=== PATIENT | male | born 1960 | race Caucasian/White ===

== ENCOUNTER 2021-02-17 07:36 | Outpatient (CLI) | payer OTHER, SELFPAY ==
--- NOTE | 2021-02-17 07:42 | USCV_ITS ---
Mateusz Erasmo Age: 60 Gender: M : 1960 Exam Date: 02/17/2021 07:55 Ordering Phys: Katie Antunze ACID CUTTER Technologist: Yasmin Awan [place] [facility] [place] [facility] [place]ication: LUE PAIN, WEAKNESS, AND NUMBNESS PROCEDURES: Venous duplex imaging was performed in only the left upper extremity. The following venous structures were evaluated: internal jugular vein, subclavian vein, axillary vein, and brachial veins. In addition, the basilic vein, cephalic vein, radial vein, and ulnar vein. Serial compression, augmentation maneuvers, and spectral Doppler flow evaluation were performed. FINDINGS: The veins of the left upper extremity are readily compressible with normal venous flow dynamics including spontaneous flow, respiratory phasic variation and augmentation. No evidence of deep vein thrombosis or superficial thrombophlebitis in the left upper extremity. CONCLUSIONS No evidence of thrombus of the left upper extremity veins. Rome Joseph MD (Electronically Signed) Final Date: 17 February 2021 11:34 S
== END 2021-02-17 07:37 | disposition home or self-care (01) ==
LOC: RAD 07:41
PROVIDERS: Visit Provider Nurse Practitioner Family
DX: M62.81 Muscle weakness (generalized) (principal); R20.2 Paresthesia of skin
CPT/HCPCS: 93971

== ENCOUNTER 2021-10-28 15:14 | Emergency (ER) | payer SELFPAY ==
[2021-10-28 16:22] VITALS: BP 180/107; PULSE 99; RESP 18; TEMP 36.4; O2SAT 94; BMI 36.0
--- NOTE | 2021-10-28 16:57 | XRR_ITS ---
PROCEDURE INFORMATION: Exam: XR Chest Exam date and time: 10/28/2021 6:21 PM Age: 61 years old Clinical indication: Cough; Additional info: Dyspnea/cough TECHNIQUE: Imaging protocol: Radiologic exam of the chest. Views: 1 view. COMPARISON: No relevant prior studies available. FINDINGS: Lungs: The lung bases are suboptimally assessed due to technique however the upper lungs are clear of focal consolidation. Ill-defined patchy opacities in the left mid and lower lung zones suspicious for multifocal pneumonias. Increased peripheral interstitial markings in the bilateral lung periphery are also noted. Comparison prior study/follow-up exam should be obtained. Pleural spaces: Unremarkable. No pleural effusion. No pneumothorax. Heart/Mediastinum: Cardiac silhouette appears normal in size. No obvious vascular congestion. Bones/joints: No acute osseous findings. Other findings: Single view was submitted. XR/XR chest 1V portable [id number] IMPRESSION: Increased peripheral interstitial markings and patchy left mid/basal opacities suspicious for multifocal pneumonias. Clinical correlation and follow-up exam should be obtained.
--- NOTE | 2021-10-28 18:24 | ED_ITS ---
HPI - SOB/Dyspnea General: Chief Complaint: Shortness of Breath/Dyspnea Stated Complaint: had covid and need O2 Time Seen by Provider: 10/28/21 18:13 History of Present Illness: HPI Narrative: Patient is a 61-year-old male comes to the ED with chronic shortness of breath. Back and 2019 patient got COVID really bad and had some lung damage and recovered but was on 4 L of oxygen daily. He moved here to [place] a year ago and he lost his home oxygen due to insurance issues even though he still was requiring home oxygen. He has been without his home oxygen for almost a year now. He states that his shortness of breath continues and gets worse when he gets up and moves around. He also endorses having a dry cough that is progressed over the past couple months. He has 2 inhalers that he uses at home. Denies any chest pain, fevers, nausea/vomiting or any other symptoms. Patient's main reason for coming to the ED today was to get back on his home oxygen. Denies any history of COPD or smoking. Associated symptoms: Deny abdominal pain, chest pain, fever(s), nausea, orthopnea, palpitations or vomiting Review of Systems Const: Denies: fever(s), chills or fatigue Eyes: Denies: change in vision or eye discomfort ENMT: Denies: throat pain, odynophagia, nasal discharge or nasal congestion Card: Denies: chest pain, palpitations, edema, swelling of feet/ankles, dyspnea on exertion or orthopnea Resp: Reports: dyspnea (Chronic) and non-productive cough; Denies: productive cough GI: Denies: abdominal pain, nausea, vomiting, diarrhea, constipation or hematochezia : Denies: flank pain, difficulty urinating, dysuria or hematuria Musc: Denies: neck pain, back pain or extremity swelling Skin/Breast: Denies: rash or new lesions Neuro: Denies: headache(s), numbness in extremities or weakness in extremities PFS ED PFSH: Medical History COVID-19 History of home oxygen therapy Surgical History No pertinent past surgical history Physical Exam Const: COMMON NORMALS: patient oriented x3 and alert GENERAL APPEARANCE: cooperative HENMT: COMMON NORMALS: normocephalic HEAD & SCALP: normocephalic MOUTH: Normal oral and palatal mucosa present THROAT: posterior oropharynx normal and uvula midline Neck/C-Spine: COMMON NORMALS: supple GENERAL: Yes normal visual inspection Resp: COMMON NORMALS: normal respiratory effort, No retractions and No use of accessory muscles EFFORT & INSPECTION: Yes Actively coughing moist and strong AUSCULTATION: crackles Laterality: left and diminished lung sounds bilateral in the lower lung clark Cardio: COMMON NORMALS: regular rate, regular rhythm, S1 normal heart sound present, S2 normal heart sound present, No gallops present (Cardio), No clicks present (Cardio), No murmurs present (Cardio) and Peripheral pulses 2+ throughout RATE: regular rate RHYTHM: regular rhythm HEART SOUNDS: S1 normal heart sound present and S2 normal heart sound present PERIPHERAL PULSES: Peripheral pulses 2+ throughout GI: COMMON NORMALS: Normal to inspection, nondistended, normoactive bowel sounds present, Soft to palpation, non-tender and no masses PALPATION: Yes Soft to palpation : COMMON NORMALS: Yes no CVA tenderness BLADDER/KIDNEY EXAM: Yes no CVA tenderness Back/Pelvis: COMMON NORMALS: no CVA tenderness Extremity: COMMON NORMALS: normal to inspection Neuro: COMMON NORMALS: patient oriented x3 SENSORIUM/ORIENTATION: Yes alert GAIT: Yes Normal gait present Skin: GENERAL SKIN EXAM: dry skin Course Vital Signs: Vital signs: Vital Signs Temperature 97.5 F L 10/28/21 16:22 Pulse Rate 89 10/28/21 19:32 Respiratory Rate 20 H 10/28/21 19:27 Blood Pressure 180/107 10/28/21 16:22 Pulse Oximetry 92 10/28/21 19:28 Oxygen Delivery Me thod 10/28/21 19:27 Oxygen Flow Rate 3 10/28/21 19:28 MDM - SOB/Dyspnea Medical Decision Making Patient is a 61-year-old male comes to the ED with chronic shortness of breath. He has also been having a worsening cough for the past couple months. Patient had a bad case of COVID-19 back in 2019 and recovered he has been on 4 L of home O2. Approximately a year ago he moved here to [place] and he lost his insurance and his home oxygen. He has not been using his home oxygen for almost a year and his current symptoms have been progressing since being off oxygen. Denies any fevers. Cough is productive with clear phlegm. Patient's O2 sat was 94% on 3 L via nasal cannula. The rest of his vitals were stable. CBC and CMP were unremarkable blood cultures pending. Chest x-ray showed patchy left mid and basilar opacities suspicious for multifocal pneumonia. DuoNeb breathing treatments given here in the ED. Home O2 eval performed by respiratory therapy and he qualified for continuous oxygen via nasal cannula at 3 L. He was given a dose of prednisone and azithromycin here in the ED. Patient diagnosed with hypoxia and pneumonia. He was discharged home with home oxygen and home health came here and set him up with oxygen before discharge. Patient says he has 2 inhalers he uses at home currently. Told to follow-up with his PCP within the next week for reevaluation. Return to ED precautions given. Patient understood and agreed with plan. Lab Data I reviewed the patient's lab results. : 10/28/21 19:23 10/28/21 19: Labs/Radiology: Radiology Impressions Chest X-Ray 10/28/21 16:57 IMPRESSION: Increased peripheral interstitial markings and patchy left mid/basal opacities suspicious for multifocal pneumonias. Clinical correlation and follow-up exam should be obtained. Laboratory Results WBC 10.3 10^3/uL (4.0-10.0) H 10/28/21 19: RBC 5.19 10^6/uL (4.1-5.3) 10/28/21 19: Hgb 15.3 g/dL (11.7-16.6) 10/28/21 19: Hct 46.4 % (42.0-52.0) 10/28/21 19: MCV 89.4 fl (80-94) 10/28/21 19: MCH 29.5 pg (28.0-34.0) 10/28/21 19: MCHC 33.0 g/dL (30.0-36.0) 10/28/21 19: RDW 13.4 % (12.1-15.1) 10/28/21 19: Plt Count 356 10^3/cmm (130-400) 10/28/21 19: MPV 11.4 fL (7.4-10.4) H 10/28/21 19: Neut % (Auto) 57.0 % 10/28/21 19: Lymph % (Auto) 28.4 % 10/28/21 19:23 [place] % (Auto) 9.1 % 10/28/21 19: Eos % (Auto) 3.9 % 10/28/21 19: Baso % (Auto) 1.1 % 10/28/21 19: Neut # (Auto) 5.89 10^3/uL (1.8-7.7) 10/28/21 19: Lymph # (Auto) 2.9 10^3/uL (0.8-4.8) 10/28/21 19: [place] # (Auto) 0.9 10^3/uL (0.2-0.9) 10/28/21 19: Eos # (Auto) 0.4 10^3/uL (0.0-0.8) 10/28/21: Baso # (Auto) 0.1 10^3/uL (0.0-0.1) 10/28/21 19: Nucleated RBC % (auto) 0 % 10/28/21: Nucleated RBCs # 0.0 /100WBC 10/28/21 19: Sodium 136 mmol/L (136-145) 10/28/21 19: Potassium 4.0 mmol/L (3.5-5.1) 10/28/21 19: Chloride 98 mmol/L (98-107) 10/28/21 19: Carbon Dioxide 25 mmol/L (22-29) 10/28/21 19: Anion Gap 17.0 (5-19) 10/28/21 19: BUN 20 mg/dL (8-23) 10/28/21 19: Creatinine 1.0 mg/dL (0.7-1.2) 10/28/21: GFR Calculation 76.2 mL/min (90-130) L 10/28/21 19: Glucose 178 mg/dL (65-115) H 10/28/21: Calculated Osmolality 289 mOsm/kg (285-295) 10/28/21: Calcium 9.3 mg/dL (8.5-10.5) 10/28/21:23 Total Bilirubin 0.3 mg/dL (0.15-1.2) 10/28/21 19:23 AST 18 U/L (0-40) 10/28/21 19:23 ALT 26 U/L (0-41) 10/28/21 19:23 Alkaline Phosphatase 58 U/L (40-130) 10/28/21 19:23 Total Protein 7.5 g/dL (6.6-8.7) 10/28/21 19:23 Albumin 4.3 g/dL (3.5-5.2) 10/28/21 19:23 Globulin 3.2 g/dL (1.3-4.6) 10/28/21 19:23 Discharge Plan Discharge Patient Disposition: Home Clinical Impression: Hypoxia Pneumonia Qualifiers: Pneumonia type: due to unspecified organism Laterality: left Lung location: lower lobe of lung Qualified Code(s): J18.9 - Pneumonia, unspecified organism Condition: Stable Prescriptions: New prednisone 20 mg tablet 20 mg PO BID 5 Days Qty: 10 0RF azithromycin 250 mg tablet 250 mg PO DAILY 4 Days Qty: 4 0RF Rx Instructions: start on day 2 of therapy Discharge Orders: Discharge ED (Routine); Ordered 10/28/21 Ordered By: Grant Zuñiga Other Ambulatory Orders: DME: Oxygen (Order) Location: None Selected Ordered By: Grant Zuñiga Referrals: Alexandre Antunez MD [Primary Care Provider] - Discharge Diet: Regular Discharge Activity: Increase activity as tolerated Patient Instructions: Using Oxygen at Home (ED), Pneumonia (ED) Activity Restrictions/Additional Instructions: Follow-up with medical provider as directed within the next 3 to 5 days for reevaluation. Take medications as prescribed. Wear your oxygen continuously at 3 L as prescribed to help with shortness of breath. Return to the ER or your medical provider if condition worsens. Please read and understand discharge instructions. Thank you for choosing [facility] for your healthcare needs today. Please realize this is an emergency room and that we are providing you with a medical screening exam and this may not be complete and all inclusive of all the testing and or work up that you may need to determine your ailment or severity of your illness. It is very important that you follow up as instructed or that you return to the Emergency Department should you have concerns or if your condition changes or worsens in any way. Coding Level of Care Code ED Crm Marketing Analyst for Chg Fwd Exam Comprehensive
[2021-10-28 18:38] VITALS: PULSE 91; RESP 18; O2SAT 93
--- NOTE | 2021-10-28 19:00 | PC.NURSE ---
PT WAS AMBULATED TO EVALUATE HOME O2 NEEDS. AFTER AMBULATION PTS O2 DROPPED TO 89%.
[2021-10-28] MEDS: ipratropium-albuterol 3 mL Neb 6 ML INHALATION (19:25)
[2021-10-28 19:27] VITALS: PULSE 101; RESP 20; O2SAT 98
[2021-10-28 19:28] VITALS: O2SAT 86; O2SAT 92; O2SAT 94
[2021-10-28 19:32] VITALS: PULSE 89
[2021-10-28 19:37] LABS: Basophils # 0.1 10^3/uL (0.0-0.1); Basophils % 1.1 %; Eosinophils # 0.4 10^3/uL (0.0-0.8); Eosinophils % 3.9 %; Hematocrit 46.4 % (42.0-52.0); Hemoglobin 15.3 g/dL (11.7-16.6); Lymphocytes # 2.9 10^3/uL (0.8-4.8); Lymphocytes % 28.4 %; Mean Corpuscular Hemoglobin 29.5 pg (28.0-34.0); Mean Corpuscular Volume 89.4 fl (80-94); Mean Platelet Volume 11.4 fL (7.4-10.4); Monocytes # 0.9 10^3/uL (0.2-0.9); Monocytes % 9.1 %; Neutrophils # 5.89 10^3/uL (1.8-7.7); Nucleated Red Blood Cells % 0 %; Platelet Count 356 10^3/cmm (130-400); Red Blood Count 5.19 10^6/uL (4.1-5.3); Red Cell Distribution Width 13.4 % (12.1-15.1); White Blood Count 10.3 10^3/uL (4.0-10.0)
[2021-10-28 19:52] LABS: Alanine Aminotransferase 26 U/L (0-41); Albumin Level 4.3 g/dL (3.5-5.2); Alkaline Phosphatase 58 U/L (40-130); Aspartate Amino Transferase 18 U/L (0-40); Blood Urea Nitrogen 20 mg/dL (8-23); Calcium 9.3 mg/dL (8.5-10.5); Carbon Dioxide 25 mmol/L (22-29); Chloride 98 mmol/L (98-107); Globulin 3.2 g/dL (1.3-4.6); Glomerular Filtration Rate 76.2 mL/min (90-130); Glucose 178 mg/dL (65-115); Osmolality Calculated 289 mOsm/kg (285-295); Sodium 136 mmol/L (136-145); Total Bilirubin 0.3 mg/dL (0.15-1.2); Total Protein 7.5 g/dL (6.6-8.7)
== END 2021-10-28 21:36 | disposition home or self-care (01) ==
PROVIDERS: Emergency Provider Physician Assistant
DX: J18.9 Pneumonia, unspecified organism (principal); R09.02 Hypoxemia; Z99.81 Dependence on supplemental oxygen
CPT/HCPCS: 71045; 80053; 85025; 87040; 94640; 99284

== ENCOUNTER 2022-05-27 23:26 | Inpatient (IN) | payer MEDICARE, SELFPAY ==
[2022-05-27 23:56] VITALS: BMI 36.0
[2022-05-28] VITALS (23 sets, daily range): BP systolic 117–162; BP diastolic 63–94; PULSE 98–124; RESP 16–29; TEMP 36.3–38.6; O2SAT 92–99
--- NOTE | 2022-05-28 00:08 | XRR_ITS ---
PROCEDURE INFORMATION: Exam: XR Chest Exam date and time: 05/28/2022 12:31 AM Age: 61 years old Clinical indication: Fever and shortness of breath; Additional info: Shortness of breath and fever TECHNIQUE: Imaging protocol: Radiologic exam of the chest. Views: 1 view. COMPARISON: CR XR chest 1V portable [id number] 10/28/2021 6:21 PM FINDINGS: Lungs: Low lung volumes and bronchovascular crowding. Mild interstitial opacities. Mild underlying pulmonary edema can not be excluded. Atypical infection can give a similar appearance. Redemonstration of diffuse airspace opacity throughout the left lower lobe concerning for pneumonia. Additional mild right lower lobe opacities may represent atelectasis, inflammation, or pneumonia. Pleural spaces: The costophrenic angles are obscured. Can not exclude layering pleural effusions. Heart/Mediastinum: The cardiomediastinal silhouette is obscured. Bones/joints: There are degenerative changes of the spine and shoulder joints. XR/XR chest 1V portable [id number] IMPRESSION: 1. No significant change since prior. 2. Redemonstration of patchy opacity in the left lower lobe concerning for pneumonia. 3. Additional pertinent findings in the body of the report.
--- NOTE | 2022-05-28 00:43 | ED_ITS ---
HPI - SOB/Dyspnea General: Chief Complaint: Shortness of Breath/Dyspnea Stated Complaint: RESP. DISTRESS Time Seen by Provider: 05/28/22 00:18 Source: patient and EMS Mode of arrival: EMS Limitations: no limitations History of Present Illness: HPI Narrative: 61-year-old male has a history of chronic lung disease from COVID 2 years ago he is on 4 L of baseline oxygen. He states of last 4 days he been having fevers along with worsening cough and worsening shortness of breath. He is requiring 5 to 6 L oxygen here he does have a temperature 101.5. He states his cough has b een productive and is worsened today. Denies any pain denies any vomiting or diarrhea. Associated symptoms: Reports fever(s); Deny abdominal pain, chest pain, nausea or vomiting Review of Systems Const: Reports: fever(s), chills and body aches; Denies: change in appetite ENMT: Denies: throat pain or dental pain Card: Denies: chest pain Resp: Reports: dyspnea and productive cough GI: Denies: abdominal pain, nausea, vomiting or diarrhea : Denies: dysuria Musc: Denies: neck pain or back pain Skin/Breast: Denies: rash Neuro: Denies: headache(s) PFSH ED PFSH: Medical History COVID-19 History of home oxygen therapy Surgical History No pertinent past surgical history Social History (Updated 05/28/22 @ 00:45 by Gypsy Langston MD) Substance/Drug Use: unknown Physical Exam Const: COMMON NORMALS: patient oriented x3 GENERAL APPEARANCE: in distress HENMT: COMMON NORMALS: normocephalic and atraumatic HEAD & SCALP: no rmocephalic and atraumatic Eye: COMMON NORMALS: conjunctivae normal CONJUNCTIVA: Yes conjunctivae normal Neck/C-Spine: COMMON NORMALS: full ROM and supple Chest: COMMONS NORMALS: normal inspection of the chest and normal palpation of entire chest wall Resp: EFFORT & INSPECTION: Yes respiratory distress and Yes labored AUSCULTATION: rales Cardio: COMMON NORMALS: regular rhythm and No murmurs present (Cardio) RATE: tachycardic RHYTHM: regular rhythm GI: COMMON NORMALS: Normal to inspection, nondistended, normoactive bowel sounds present, Soft to palpation, non-tender and no masses PALPATION: Yes Soft to palpation Extremity: COMMON NORMALS: normal to inspection and full ROM Neuro: COMMON NORMALS: patient oriented x3, moves all extremities and no focal motor deficits Psych: COMMON NORMALS: mental status grossly normal, Normal thought process present and cooperative THOUGHT PROCESS: Normal thought process present Skin: COMMON NORMALS: no rashes or lesions noted and no wounds GENERAL SKIN EXAM: no rashes or lesions noted Course Vital Signs: Vital signs: Vital Signs Temperature 101.5 F H 05/28/22 00:04 Pulse Rate 115 H 05/28/22 01:54 Respiratory Rate 18 05/28/22 01:54 Blood Pressure 159/81 05/28/22 00:04 Pulse Oximetry 97 05/28/22 01:54 Oxygen Delivery Me thod Nasal Cannula 05/28/22 01:54 Oxygen Flow Rate 5 05/28/22 01:54 MDM - SOB/Dyspnea Medical Decision Making Patient presents here with shortness of breath cough and fever he does have pneumonia noted on his x-ray he is fevers improved here did give him IV boluses his lactate was 4.9 gave him 3 L which is 30 mL/kg for his ideal body weight he has not been hypotensive here he has been hypertensive the whole time did start him on IV antibiotics spoke to the hospitalist will admit at this time. Medical Records I reviewed the patient's medical records. Lab Data I reviewed the patient's lab results. 05/28/22 01:05 05/28/22 00:12 Labs/Radiology: Radiology Impressions Chest X-Ray 05/28/22 00:08 IMPRESSION: 1. No significant change since prior. 2. Redemonstration of patchy opacity in the left lower lobe concerning for pneumonia. 3. Additional pertinent findings in the body of the report. Laboratory Results WBC 11.1 10^3/uL (4.0-10.0) H 05/28/22 01:05 Corrected WBC Cancelled 05/28/22 00:12 RBC 4.31 10^6/uL (4.1-5.3) 05/28/22 01:05 Hgb 12.4 g/dL (11.7-16.6) 05/28/22 01:05 Hct 39.2 % (42.0-52.0) L 05/28/22 01:05 MCV 91.0 fl (80-94) 05/28/22 01:05 MCH 28.8 pg (28.0-34.0) 05/28/22 01:05 MCHC 31.6 g/dL (30.0-36.0) 05/28/22 01:05 RDW 13.2 % (12.1-15.1) 05/28/22 01:05 Plt Count 351 10^3/cmm (130-400) 05/28/22 01:05 MPV 10.4 fL (7.4-10.4) 05/28/22 01:05 Gran % Cancelled 05/28/22 00:12 Neut % (Auto) 79.2 % 05/28/22 01:05 Lymph % (Auto) 7.5 % 05/28/22 01:05 [place] % (Auto) 12.1 % 05/28/22 01:05 Eos % (Auto) 0.1 % 05/28/22 01:05 Baso % (Auto) 0.3 % 05/28/22 01:05 Neut # (Auto) 8.82 10^3/uL (1.8-7.7) H 05/28/22 01:05 Lymph # (Auto) 0.8 10^3/uL (0.8-4.8) 05/28/22 01:05 [place] # (Auto) 1.3 10^3/uL (0.2-0.9) H 05/28/22 01:05 Eos # (Auto) 0.0 10^3/uL (0.0-0.8) 05/28/22 01:05 Baso # (Auto) 0.0 10^3/uL (0.0-0.1) 05/28/22 01:05 Absolute Gran (auto) Cancelled 05/28/22 00:12 Nucleated RBC % (auto) 0.2 % 05/28/22 01:05 Nucleated RBCs # 0.0 /100WBC 05/28/22 01:05 D-Dimer 5.77 ug/mIFEU (0-0.59) H 05/28/22 00:12 Sodium 133 mmol/L (136-145) L 05/28/22 00:12 Potassium 3.3 mmol/L (3.5-5.1) L 05/28/22 00:12 Chloride 91 mmol/L (98-107) L 05/28/22 00:12 Carbon Dioxide 26 mmol/L (22-29) 05/28/22 00:12 Anion Gap 19.3 (5-19) H 05/28/22 00:12 BUN 14 mg/dL (8-23) 05/28/22 00:12 Creatinine 1.0 mg/dL (0.7-1.2) 05/28/22 00:12 GFR Calculation 76.2 mL/min (90-130) L 05/28/22 00:12 Glucose 344 mg/dL (65-115) H 05/28/22 00:12 Calculated Osmolality 290 mOsm/kg (285-295) 05/28/22 00:12 Lactic Acid 4.9 mmol/L (0.5-2.2) H* 05/28/22 01:00 Calcium 8.5 mg/dL (8.5-10.5) 05/28/22 00:12 Total Bilirubin 0.4 mg/dL (0.15-1.2) 05/28/22 00:12 AST 23 U/L (0-40) 05/28/22 00:12 ALT 19 U/L (0-41) 05/28/22 00:12 Alkaline Phosphatase 58 U/L (40-130) 05/28/22 00:12 NT-Pro-B Natriuret Pep 72 pg/mL (0-125) 05/28/22 00:12 Total Protein 7.2 g/dL (6.6-8.7) 05/28/22 00:12 Albumin 3.3 g/dL (3.5-5.2) L 05/28/22 00:12 Globulin 3.9 g/dL (1.3-4.6) 05/28/22 00:12 Urine Color Colorless (Yellow) 05/28/22 01:45 Urine Appearance Clear (CLEAR) 05/28/22 01:45 Urine pH 5 (5-7) 05/28/22 01:45 Ur Specific [place] 1.015 (1.005-1.030) 05/28/22 01:45 Urine Protein 1+ (Negative) H 05/28/22 01:45 Urine Glucose (UA) 4+ (Normal) H 05/28/22 01:45 Urine Ketones 2+ (Negative) H 05/28/22 01:45 Urine Blood 3+ (Negative) H 05/28/22 01:45 Urine Nitrate Negative (Negative) 05/28/22 01:45 Urine Bilirubin Neg (Negative) 05/28/22 01:45 Urine Urobilinogen Neg mg/dL (Negative) 05/28/22 01:45 Ur Leukocyte Esterase Negative (Negative) 05/28/22 01:45 Urine RBC 5-10 /hpf (0-2) H 05/28/22 01:45 Urine WBC None /hpf (0-5) 05/28/22 01:45 Ur Squamous Epith Cells None /hpf (0-5) 05/28/22 01:45 Amorphous Sediment Not Reportable 05/28/22 01:45 Urine Bacteria None /hpf (NONE) 05/28/22 01:45 SARS-CoV-2 Ag (Rapid) negative (Negative) 05/28/22 01:45 Discharge Plan Discharge Patient Disposition: Admitted As Inpatient Clinical Impression: Community acquired pneumonia, Acute respiratory failure with hypoxia Coding Level of Care Code ED Blood Bank Technologist for Andra Calles
[2022-05-28 00:48] LABS: Alanine Aminotransferase 19 U/L (0-41); Albumin Level 3.3 g/dL (3.5-5.2); Alkaline Phosphatase 58 U/L (40-130); Anion Gap 19.3 (5-19); Aspartate Amino Transferase 23 U/L (0-40); Blood Urea Nitrogen 14 mg/dL (8-23); Calcium 8.5 mg/dL (8.5-10.5); Carbon Dioxide 26 mmol/L (22-29); Chloride 91 mmol/L (98-107); Globulin 3.9 g/dL (1.3-4.6); Glomerular Filtration Rate 76.2 mL/min (90-130); Glucose 344 mg/dL (65-115); NT Pro B Type Natriuretic Pept 72 pg/mL (0-125); Osmolality Calculated 290 mOsm/kg (285-295); Potassium 3.3 mmol/L (3.5-5.1); Sodium 133 mmol/L (136-145); Total Bilirubin 0.4 mg/dL (0.15-1.2); Total Protein 7.2 g/dL (6.6-8.7)
[2022-05-28] MEDS: sodium chloride 0.9% 1,000 ML 999 ML IV ×3 (01:04→02:47)
[2022-05-28] MEDS: acetaminophen 500 mg Tablet 1000 MG PO (01:05)
[2022-05-28] MEDS: cefTRIAXone 1,000 MG in sodium chloride 0.9% (plus) 50 ML 100 MG IV (01:07)
[2022-05-28 01:23] LABS: Basophils % 0.3 %; Eosinophils % 0.1 %; Hematocrit 39.2 % (42.0-52.0); Hemoglobin 12.4 g/dL (11.7-16.6); Lymphocytes # 0.8 10^3/uL (0.8-4.8); Lymphocytes % 7.5 %; Mean Corpuscular HGB Conc 31.6 g/dL (30.0-36.0); Mean Corpuscular Hemoglobin 28.8 pg (28.0-34.0); Mean Platelet Volume 10.4 fL (7.4-10.4); Monocytes # 1.3 10^3/uL (0.2-0.9); Monocytes % 12.1 %; Neutrophils # 8.82 10^3/uL (1.8-7.7); Neutrophils % 79.2 %; Nucleated Red Blood Cells % 0.2 %; Platelet Count 351 10^3/cmm (130-400); Red Blood Count 4.31 10^6/uL (4.1-5.3); Red Cell Distribution Width 13.2 % (12.1-15.1); White Blood Count 11.1 10^3/uL (4.0-10.0)
[2022-05-28] MEDS: albuterol 2.5 mg/3 mL Neb INHALATION (01:49)
[2022-05-28 01:50] LABS: Lactic Sepsis W/Reflex 4.9 mmol/L (0.5-2.2)
[2022-05-28] MEDS: azithromycin 500 MG in sodium chloride 0.9% 250 ML 250 MG IV (01:50)
[2022-05-28 01:55] LABS: Slide Review Slide Review Perform
[2022-05-28 02:08] LABS: SARS Covid-2 Antigen negative (Negative)
--- NOTE | 2022-05-28 02:36 | CTR_ITS ---
PROCEDURE INFORMATION: Exam: CTA Chest With Contrast Exam date and time: 05/28/2022 3:39 AM Age: 61 years old Clinical indication: Fever and shortness of breath and other: Sepsis; Additional info: SOB TECHNIQUE: Imaging protocol: Computed tomographic angiography of the chest with contrast. 3D rendering (Not supervised by radiologist): MIP and/or 3D reconstructed images were created by the technologist. Total images: 1 Radiation optimization: All CT scans at this facility use at least one of these dose optimization techniques: automated exposure control; mA and/or kV adjustment per patient size (includes targeted exams where dose is matched to clinical indication); or iterative reconstruction. Contrast material: OMNI 350; Contrast volume: 100 ml; Contrast route: INTRAVENOUS (IV); REPORTING DATA: Count of CT and Cardiac NM exams in prior 12 months: This patient has received 0 known CTs and 0 known cardiac nuclear medicine studies in the 12 months prior to the current study. COMPARISON: CR (CHEST, ) 05/28/2022 12:31 AM RADIATION DOSE METRICS: Total DLP (mGy-cm): 625.01 FINDINGS: Pulmonary arteries: Pulmonary artery evaluation of good technical quality with no pulmonary artery embolism identified. Aorta: Unremarkable. No aortic aneurysm. No aortic dissection. Lungs: Benign granulomatous disease of the lung is noted. Irregular areas of lung consolidation, interstitial thickening, traction bronchiectasis and mild ground-glass opacities felt to represent combination of chronic lung changes with atelectasis and pneumonia, possible atypical pneumonia. Pleural spaces: Unremarkable. No pneumothorax. No pleural effusion. Heart: Unremarkable. No cardiomegaly. No pericardial effusion. Lymph nodes: Calcified mediastinal and hilar nodes noted. Numerous mildly prominent mediastinal and hilar lymph nodes felt to be reactive. Gallbladder and bile ducts: Prior cholecystectomy noted. Spleen: Incidental splenic granulomata are noted. Bones/joints: Old right rib fractures are evident. Spinal degenerative changes are evident. Soft tissues: Unremarkable. CT/CT angio chest PE protcl [id number] IMPRESSION: 1. Numerous mildly prominent mediastinal and hilar lymph nodes felt to be reactive. 2. No pulmonary artery embolism identified. 3. Irregular areas of lung consolidation, interstitial thickening, traction bronchiectasis and mild ground-glass opacities felt to represent combination of chronic lung changes with atelectasis and pneumonia, possible atypical pneumonia.
[2022-05-28] MEDS: iohexol 350 mg/mL 500 mL Btl (per mL) IV (02:46)
[2022-05-28 02:52] LABS: D Dimer 5.77 ug/mIFEU (0-0.59)
[2022-05-28 02:55] LABS: Protein Urine 1+ (Negative); Specific Gravity, Urine 1.015 (1.005-1.030); Urine Appearance Clear (CLEAR); Urine Color Colorless (Yellow); pH Urine 5 (5-7)
[2022-05-28 02:56] LABS: Add Urine Culture? No; Add Urine Microscopic? YES; Bilirubin Urine Neg (Negative); Blood Urine 3+ (Negative); Glucose Urine UA 4+ (Normal); Ketones Urine 2+ (Negative); Leukocyte Esterase Urine Negative (Negative); Nitrate Urine Negative (Negative); Urobilinogen Urine Neg (Negative)
[2022-05-28 03:06] LABS: Reflex Lactate Order REFLEX LACTIC ORDERD
--- NOTE | 2022-05-28 03:12 | P.HP_ITS ---
Providers/Chief Complaint Admitting Physician: Martin Shanks MD Primary Care Provider: Alexandre Antunez MD Chief Complaint: RESP. DISTRESS History of Present Illness Erasmo Child is a 61 year old male with a past medical history of CVA, [id number] type 2 diabetes mellitus, obesity, long COVID, who presents to [facility] for a week history of cough, shortness of breath, fatigue, malaise. Patient tells me for the last week he has felt increasingly short of breath, cough, fatigue, malaise, low-grade fevers. Today, he had worsening of his shortness of breath, with high-grade fevers, productive cough, thus he came to emergency room for evaluation, no chest pain, no palpitations, lightens, dizziness, recent travel no recent surgeries no calf pain no calf swelling, hemoptysis Review of Systems Const: Reports: fever(s), chills, fatigue and malaise Card: Denies: chest pain Resp: Reports: dyspnea and productive cough GI: Denies: abdominal pain Medications/Allergies Allergies Allergy/AdvReac Type Severity Reaction Status Date / Time No Known Allergies Allergy Verified 10/28/21 16:22 PFSH Acute PFSH: Medical History COVID-19 History of home oxygen therapy Surgical History No pertinent past surgical history Family History (Updated 05/28/22 @ 03:14 by Martin Shanks MD) Father CAD (coronary artery disease) Social History (Updated 05/28/22 @ 03:14 by Martin Shanks MD) Smoking and tobacco status: never smoked Alcohol intake: never Substance/Drug Use: never Vitals/I&O/Wt Last Vital Signs Temp 101.5 F H 05/28/22 00:04 Pulse 115 H 05/28/22 01:54 Resp 18 05/28/22 01:54 BP 159/81 05/28/22 00:04 Pulse Ox 97 05/28/22 01:54 O2 Del Method Nasal Cannula 05/28/22 01:54 O2 Flow Rate 5 05/28/22 01:54 05/27/22 05/27/22 05/28/22 14:59 22:59 06:59 Intake Total 1050 / 1050 Balance 1050 / 1050 Weight last 48 hrs Weight 104.326 kg Physical Exam Const: COMMON NORMALS: no acute distress and patient oriented x3 HENMT: COMMON NORMALS: normocephalic HEAD & SCALP: normocephalic Eye: COMMON NORMALS: Equal, round and reactive pupils present and EOMs intact bilaterally Neck/C-Spine: COMMON NORMALS: no JVD Lymph: LYMPHATIC: no lymphadenopathy noted Chest: COMMONS NORMALS: normal inspection of the chest Resp: COMMON NORMALS: normal respiratory effort, No retractions, No use of accessory muscles and clear to auscultation bilaterally AUSCULTATION: wheezes Cardio: COMMON NORMALS: no JVD, regular rate, regular rhythm, S1 normal heart sound present and S2 normal heart sound present RATE: regular rate RHYTHM: regular rhythm HEART SOUNDS: S1 normal heart sound present and S2 normal heart sound present GI: COMMON NORMALS: Normal to inspection, nondistended, normoactive bowel sounds present, Soft to palpation and non-tender PALPATION: Yes Soft to palpation and Yes No hepatosplenomegaly present : COMMON NORMALS: Yes no CVA tenderness Extremity: COMMON NORMALS: no calf tenderness and no pedal edema Neuro: COMMON NORMALS: patient oriented x3, CN's II-XII intact bilaterally, moves all extremities and no focal motor deficits Psych: COMMON NORMALS: mental status grossly normal Data 05/28/22 01:05 05/28/22 00:12 Micro: Microbiology 05/28/22 01:00 Blood Culture - Preliminary Blood SPECIMEN COLLECTED 05/28/22 01:05 Blood Culture - Preliminary Blood SPECIMEN COLLECTED A&P Assessment and plan (1) Acute respiratory failure with hypoxia: (2) Community acquired pneumonia: (3) Hypoxia: (4) Lactic acidosis: (5) Sepsis: Plan Acute hypoxic respiratory failure -Secondary to pneumonia Plan -Admit to general medical floors -Broaden antibiotic coverage to vancomycin -Cefepime -Sputum cultures, blood cultures -Viral respiratory panel -DuoNeb -Budesonide -Full code -Lovenox for DVT prophylaxis Elevated D-dimer, will obtain CT angiogram of the chest Hyponatremia, monitor Hypokalemia replace Lactic acidosis, received sepsis bolus Sepsis, with evidence of infection, elevated white blood cell count, fevers, hypoxia, tachypnea, Attestations Medical Necessity Statement*: Patient requires hospitalization, inpatient, greater than 2 minutes, for acute hypoxic respiratory failure, pneumonia, hypoxia, sepsis, lactic acidosis Diagnoses Acute respiratory failure with hypoxia J96.01 Community acquired pneumonia J18.9 Hypoxia R09.02 Lactic acidosis E87.20 Sepsis A41.9
[2022-05-28 03:22] LABS: Troponin(5th) Baseline 12 ng/L (0-15)
[2022-05-28 03:32] LABS: C Reactive Protein 295.1 mg/L (0.0-4.9)
[2022-05-28 03:39] LABS: Procalcitonin 0.46 ng/mL (0-0.5)
--- NOTE | 2022-05-28 04:06 | PC.PHAR ---
Pharmacokinetic dosing service Date: 05/28/22 Time: 405 Objective: Patient: Erasmo Child Floor: 254-1 Age: 61 yo Serum creatinine: 1.0 mg/dL Height: 67.0 Inches Weight (kg): 104.326 Diagnosis: Relevant medical/social history: Cultures and sensitivities: Other labs: Assessment: IBW (kg): 66.10 Dosing wt(kg): 104.326 Estimated Creatinine clearance (ml/min): 73.4 CRCL method: Cockcroft and Gault using ibw(default). Drug selected: Vancomycin Loading dose (mg): 0 Vd (liters): 93.9 (factor used: 0.9 L/kg) Bruno (hr-1): 0.065 Half life (hrs): 10.66 Recommended dose: 1500 mg Interval: 12 hrs Infusion time (hrs): 1.5 Predicted peak (mcg/mL): 28.1 Predicted trough (mcg/mL): 14.20 Total body weight is being used for vancomycin dosing. Renal function is stable [ ] /unstable [ ] Recommendations: Give Vancomycin 1500 mg q 12 hrs with an expected Cpeak of 28.1 mcg/ml and an expected Ctrough of 14.20 mcg/ml Renal dosing of other antibiotics (review renal dosing of other medications and list guidelines here): Thank you for the consult, will continue to follow. Signature: Michelle Baker [facility]
[2022-05-28] MEDS: potassium chloride ER 20 mEq Tablet PO (04:25)
[2022-05-28] MEDS: pantoprazole 40 mg SDV IVP (04:25)
[2022-05-28] MEDS: enoxaparin 40 mg/0.4 mL Syringe SUBCUT (04:26)
--- NOTE | 2022-05-28 04:38 | ECG_ITS ---
[facility] Test Date: 2022-05-28 Pat Name: Erasmo Child Department: Room: 258 Gender: Male Curatorial Specialist: : 1960 Requested By: Martin Shanks Order Number: [id number] Gato MD: Jacqueline Fan M.D. Measurements Intervals [place] Rate: 110 P: 0 MI: 184 QRS: 12 QRSD: 112 T: 3 QT: 331 QTc: 448 Interpretive Statements SINUS TACHYCARDIA MODERATE INTRAVENTRICULAR CONDUCTION DELAY [110+ ms QRS DURATION] NONSPECIFIC T-WAVE ABNORMALITY ABNORMAL RHYTHM ECG No previous ECG available for comparison Electronically Signed On 05-28-2022 22:21:32 CDT by Jacqueline Fan M.D. [id number]
[2022-05-28] MEDS: vancomycin 1,500 MG/300 ML PIGGYBACK 200 MG IV (05:27)
[2022-05-28 05:32] LABS: Adenovirus Not Detected (NOT DETECT); Chlamydia Pneumoniae Not Detected (NOT DETECT); Coronavirus 229E,HKU1,NL63,OC4 Not Detected (NOT DETECT); Human Metapneumovirus Not Detected (NOT DETECT); Human Rhinovirus/Enterovirus Not Detected (NOT DETECT); Influenza A Not Detected (NOT DETECT); Influenza A H1 Not Detected (NOT DETECT); Influenza A H1-2009 Not Detected (NOT DETECT); Influenza A H3 Not Detected (NOT DETECT); Influenza B Not Detected (NOT DETECT); Mycoplasma Pneumoniae Not Detected (NOT DETECT); Parainfluenza Virus Type 1 Not Detected (NOT DETECT); Parainfluenza Virus Type 2 Not Detected (NOT DETECT); Parainfluenza Virus Type 3 Not Detected (NOT DETECT); Parainfluenza Virus Type 4 Not Detected (NOT DETECT); Respiratory Syncytial Virus A Not Detected (NOT DETECT); Respiratory Syncytial Virus B Not Detected (NOT DETECT); SARS-COV-2 Not Detected (NOT DETECT)
[2022-05-28 06:00] LABS: Estmated Average Glucose 235; Hemoglobin A1C 9.8 % (4.0-6.0)
[2022-05-28 06:05] LABS: Lactic Acid level (Lactate) 2.9 mmol/L (0.5-2.2); Troponin 5 2HR 15.46 ng/L (0-15)
[2022-05-28 06:08] LABS: Troponin 5 2HR Delta 3.46 ABS# (0-10)
[2022-05-28 06:12] LABS: Chol HDL Ratio 1.63 mg/dL (1.0-5.00); Cholesterol 83 mg/dL (0-200); HDL Cholesterol 51 mg/dL (60-100); LDL Cholesterol Calculated 20 mg/dL (50-129); LDL HDL Ratio 0.39 RATIO (0.00-3.22); NT Pro B Type Natriuretic Pept 123 pg/mL (0-125); Thyroid Stimulating Hormone 0.59 uIU/mL (0.27-4.20); Triglycerides 61 mg/dL (0-150)
[2022-05-28 06:58] LABS: Glucose Point of Care 205 mg/dL (70-110)
[2022-05-28] MEDS: piperacillin-tazobactam 3.375 GM in sodium chloride 0.9% (plus) 50 ML IV ×3 (07:33→23:02)
[2022-05-28] MEDS: ipratropium-albuterol 3 mL Neb INHALATION ×4 (07:59→20:18)
--- NOTE | 2022-05-28 08:24 | ECG_ITS ---
[facility] Test Date: 2022-05-28 Pat Name: Erasmo Child Department: Room: 258 Gender: Male Web Site Developer: : 1960 Requested By: Martin Shanks Order Number: [id number] Reading MD: Jacqueline Fan M.D. Measurements Intervals [place] Rate: 103 P: -1 TN: 202 QRS: 4 QRSD: 111 T: -3 QT: 340 QTc: 447 Interpretive Statements SINUS TACHYCARDIA MODERATE INTRAVENTRICULAR CONDUCTION DELAY [110+ ms QRS DURATION] NONSPECIFIC T-WAVE ABNORMALITY ABNORMAL RHYTHM ECG Compared to ECG 05/28/2022 04:38:31 No significant changes Electronically Signed On 05-28-2022 22:21:48 CDT by Jacqueline Fan M.D. [id number]
--- NOTE | 2022-05-28 08:52 | USCV_ITS ---
Erasmo Child Age: 61 Gender: M : 1960 Exam Date: 05/28/2022 15:05 Ordering Phys: Nghia Chan MD Technologist: GENEVA Exam [place] [facility] [place] Indication: dvt HISTORY: Lower extremity swelling. PROCEDURES: Serial compression, augmentation maneuvers, and spectral Doppler flow evaluation were performed. FINDINGS: Normal 2-D Doppler and augmentation and compressibility throughout the lower extremity venous structures. Additional imaging through the proximal calf veins also reveals no thrombus. Limited evaluation of the greater saphenous vein is patent with no thrombus. CONCLUSIONS No DVT bilateral lower extremities. Dr. Ca Valdez DO (Electronically Signed) Final Date: 31 May 2022 07:43 S
[2022-05-28 09:03] LABS: Lactate (Lactic Acid level) 3.5 mmol/L (0.5-2.2)
[2022-05-28 09:04] LABS: Troponin 5 6HR 16.14 ng/L (0-15); Troponin 5 6HR Delta 4.14 ng/L (0-12)
[2022-05-28] MEDS: insulin lispro 100 unit/1 mL SUBCUT ×3 (09:10→17:17)
[2022-05-28] MEDS: aspirin 81 mg EC Tablet PO (09:12)
[2022-05-28 11:08] LABS: Glucose Point of Care 205 mg/dL (70-110)
[2022-05-28 16:59] LABS: Glucose Point of Care 241 mg/dL (70-110)
--- NOTE | 2022-05-28 17:21 | PM.PN ---
Subjective Subjective: He is doing slightly better. Reports not quite as short of breath but still coughing. Bringing up phlegm. His son states that he frequently aspirates with food and/will drink. Vitals/I&O/Wt Last Vital Signs Temp 97.3 F L 05/28/22 12:00 Pulse 98 05/28/22 16:00 Resp 16 05/28/22 16:00 BP 132/77 05/28/22 16:00 Pulse Ox 99 05/28/22 16:00 O2 Del Method Nasal Cannula 05/28/22 15:44 O2 Flow Rate 4 05/28/22 15:44 05/28/22 05/28/22 05/28/22 06:59 14:59 22:59 Intake Total 1050 / 1050 830 / 830 Output Total 300 / 300 750 / 750 Balance 750 / 750 80 / 80 Weight last 48 hrs Weight 110.677 kg Weight 104.326 kg Physical Exam Narrative: Son at bedside Const: COMMON NORMALS: patient oriented x3 and alert GENERAL APPEARANCE: cooperative ORIENTATION/CONSCIOUSNESS: Yes awake HENMT: COMMON NORMALS: oropharynx normal Neck/C-Spine: COMMON NORMALS: no JVD Resp: AUSCULTATION: rhonchi and wheezes Cardio: COMMON NORMALS: no JVD, regular rhythm, S1 normal heart sound present, S2 normal heart sound present and No murmurs present (Cardio) RHYTHM: regular rhythm HEART SOUNDS: S1 normal heart sound present and S2 normal heart sound present GI: COMMON NORMALS: Normal to inspection, nondistended, normoactive bowel sounds present, Soft to palpation and non-tender PALPATION: Yes Soft to palpation Extremity: COMMON NORMALS: no joint enlargement and no pedal edema Neuro: COMMON NORMALS: patient oriented x3 and moves all extremities SENSORIUM/ORIENTATION: Yes alert Skin: COMMON NORMALS: no rashes or lesions noted GENERAL SKIN EXAM: no rashes or lesions noted Data 05/28/22 01:05 05/28/22 00:12 Micro: Microbiology 05/28/22 10:10 Gram Stain - Final Sputum - Expectorated Sputum Sputum Culture - Preliminary 05/28/22 01:00 Blood Culture - Preliminary Blood SPECIMEN COLLECTED 05/28/22 01:05 Blood Culture - Preliminary Blood SPECIMEN COLLECTED A&P Assessment and plan (1) Acute respiratory failure with hypoxia: (2) Community acquired pneumonia: (3) Hypoxia: (4) Lactic acidosis: (5) Sepsis: (6) Dysphagia: Plan Acute hypoxic respiratory failure -Secondary to pneumonia With leukocytosis 11, neutrophilic, 8.8. Plan Continue Zosyn, vancomycin, azithromycin He continues to have productive cough which is bothersome to him. Add Robitussin DM. Flutter valve. Additionally states that he not infrequently aspirates during eating or drinking which has been going on for a long time. ST evaluation. Aspiration precautions. History of reasonably large amounts of purulent sputum. Additionally to assist him with expectoration we will additionally request for chest vest twice daily, 3.5% saline infusions. Follow-up cultures. Follow-up CBC requested. Elevated D-dimer, noted no PE CT angiogram of the chest numerous mildly prominent mediastinal and hilar lymph nodes felt to be reactive. Irregular areas of lung consolidation, interstitial thickening, traction bronchiectasis and mild groundglass opacities culture present combination of chronic lung changes with Lexiscan pneumonia possible atypical pneumonia. We will do blood requested. Hyponatremia, sodium 133, recheck chemistry. Hypokalemia potassium noted 3.3, received replacement. Follow-up potassium level. Lactic acidosis, with persistence, 3.5 this morning. However, otherwise hemodynamically improving, subjectively feeling slightly better. Tachycardia is improving. Noted fever one 1.5 last night, so far no recurrence. Sepsis, with evidence of infection, elevated white blood cell count, fevers, hypoxia, tachypnea, continue treatment as above. Follow-up blood cultures. Attestations Medical Necessity Statement*: Continue admission for assessment management of acute respiratory failure. Diagnoses Acute respiratory failure with hypoxia J96.01 Community acquired pneumonia J18.9 Hypoxia R09.02 Lactic acidosis E87.20 Sepsis A41.9 Dysphagia R13.10
[2022-05-28] MEDS: guaiFENesin-dextromethorphan UDC 10 mL PO (17:45)
[2022-05-28] MEDS: budesonide 0.5 mg/2 mL Neb INHALATION (20:18)
[2022-05-28] MEDS: sodium chloride 3.5% neb 4 mL Neb INHALATION (20:25)
[2022-05-28 20:48] LABS: Glucose Point of Care 179 mg/dL (70-110)
[2022-05-28] MEDS: zolpidem 5 mg Tablet PO (21:34)
[2022-05-29] VITALS (11 sets, daily range): BP systolic 130–161; BP diastolic 66–89; PULSE 89–112; RESP 16–20; TEMP 36.4–36.8; O2SAT 94–100
[2022-05-29] MEDS: azithromycin 500 MG in sodium chloride 0.9% 250 ML 250 MG IV (00:33)
[2022-05-29] MEDS: vancomycin 1,500 MG/300 ML PIGGYBACK 200 MG IV ×2 (03:02→15:15)
[2022-05-29] MEDS: enoxaparin 40 mg/0.4 mL Syringe SUBCUT (03:03)
[2022-05-29] MEDS: pantoprazole 40 mg SDV IVP (03:10)
[2022-05-29 06:03] LABS: Glucose Point of Care 190 mg/dL (70-110)
[2022-05-29] MEDS: piperacillin-tazobactam 3.375 GM in sodium chloride 0.9% (plus) 50 ML IV ×3 (06:06→22:32)
[2022-05-29 06:25] LABS: Basophils # 0.1 10^3/uL (0.0-0.1); Basophils % 0.9 %; Eosinophils # 0.2 10^3/uL (0.0-0.8); Eosinophils % 1.3 %; Hematocrit 35.1 % (42.0-52.0); Hemoglobin 11.1 g/dL (11.7-16.6); Lymphocytes # 1.7 10^3/uL (0.8-4.8); Lymphocytes % 14.1 %; Mean Corpuscular HGB Conc 31.6 g/dL (30.0-36.0); Mean Corpuscular Hemoglobin 28.4 pg (28.0-34.0); Mean Corpuscular Volume 89.8 fl (80-94); Mean Platelet Volume 10.4 fL (7.4-10.4); Monocytes # 1.1 10^3/uL (0.2-0.9); Monocytes % 9.7 %; Neutrophils # 8.31 10^3/uL (1.8-7.7); Neutrophils % 70.9 %; Nucleated Red Blood Cells % 0 %; Platelet Count 370 10^3/cmm (130-400); Red Blood Count 3.91 10^6/uL (4.1-5.3); Red Cell Distribution Width 13.4 % (12.1-15.1); White Blood Count 11.7 10^3/uL (4.0-10.0)
[2022-05-29 06:47] LABS: Anion Gap 15.1 (5-19); Blood Urea Nitrogen 9 mg/dL (8-23); Calcium 8.4 mg/dL (8.5-10.5); Carbon Dioxide 28 mmol/L (22-29); Chloride 93 mmol/L (98-107); Glomerular Filtration Rate 137.4 mL/min (90-130); Glucose 172 mg/dL (65-115); Osmolality Calculated 279 mOsm/kg (285-295); Potassium 3.1 mmol/L (3.5-5.1); Sodium 133 mmol/L (136-145)
[2022-05-29] MEDS: ipratropium-albuterol 3 mL Neb INHALATION ×4 (08:13→21:27)
[2022-05-29] MEDS: budesonide 0.5 mg/2 mL Neb INHALATION ×2 (08:13→21:28)
[2022-05-29] MEDS: sodium chloride 3.5% neb 4 mL Neb INHALATION ×2 (08:16→21:27)
[2022-05-29] MEDS: insulin lispro 100 unit/1 mL SUBCUT ×3 (08:36→18:01)
[2022-05-29] MEDS: aspirin 81 mg EC Tablet PO (08:36)
[2022-05-29 11:11] LABS: Glucose Point of Care 277 mg/dL (70-110)
[2022-05-29] MEDS: benzonatate 100 mg Capsule PO (12:38)
[2022-05-29 17:29] LABS: Glucose Point of Care 209 mg/dL (70-110)
--- NOTE | 2022-05-29 20:43 | P.PN_ITS ---
Subjective Subjective: He is feeling slightly better. He feels he got good results with chest vest. Still coughing up purulent phlegm. Uses flutter valve uses flutter valve. Vitals/I&O/Wt Last Vital Signs Temp 98.0 F 05/29/22 19:30 Pulse 98 05/29/22 19:30 Resp 16 05/29/22 19:30 BP 130/74 05/29/22 19:30 Pulse Ox 98 05/29/22 19:30 O2 Del Method Nasal Cannula 05/29/22 19:30 O2 Flow Rate 4 05/29/22 19:30 05/29/22 05/29/22 05/29/22 06:59 14:59 22:59 Intake Total 600.000 / 1970.000 770 / 770 830 / 1600 Output Total 1100 / 3450 400 / 400 Balance -500.000 / -1480.000 370 / 370 830 / 1200 Weight last 48 hrs Weight 110.677 kg Weight 104.326 kg Physical Exam Narrative: Son at bedside Const: COMMON NORMALS: patient oriented x3 and alert GENERAL APPEARANCE: cooperative ORIENTATION/CONSCIOUSNESS: Yes awake HENMT: COMMON NORMALS: oropharynx normal Neck/C-Spine: COMMON NORMALS: no JVD Resp: AUSCULTATION: rhonchi and wheezes Cardio: COMMON NORMALS: no JVD, regular rhythm, S1 normal heart sound present, S2 normal heart sound present and No murmurs present (Cardio) RHYTHM: regular rhythm HEART SOUNDS: S1 normal heart sound present and S2 normal heart sound present GI: COMMON NORMALS: Normal to inspection, nondistended, normoactive bowel sounds present, Soft to palpation and non-tender PALPATION: Yes Soft to palpation Extremity: COMMON NORMALS: no joint enlargement and no pedal edema Neuro: COMMON NORMALS: patient oriented x3 and moves all extremities SENSOR IUM/ORIENTATION: Yes alert Skin: COMMON NORMALS: no rashes or lesions noted GENERAL SKIN EXAM: no rashes or lesions noted Data 05/29/22 05:18 05/29/22 05:18 Micro: Microbiology 05/28/22 10:10 Gram Stain - Final Sputum - Expectorated Sputum Sputum Culture - Final 05/28/22 10:45 MRSA Culture - Final Nose 05/28/22 01:00 Blood Culture - Preliminary Blood NEGATIVE TO DATE 05/28/22 01:05 Blood Culture - Preliminary Blood NEGATIVE TO DATE A&P Assessment and plan (1) Acute respiratory failure with hypoxia: (2) Community acquired pneumonia: (3) Hypoxia: (4) Lactic acidosis: (5) Sepsis: (6) Dysphagia: Plan Acute hypoxic respiratory failure -Secondary to pneumonia superimposed on bronchiectasis, with reported recurrent aspiration. Showing some improvement. Continues on 4 L nasal cannula. Subjectively feeling slightly Good results with chest vest, 3.5 saline nebulization, flutter valve. Antibiotics. Plan With recurrent aspiration in the past, patchy multifocal pneumonia will assess MBS. Continue Zosyn, vancomycin, azithromycin Did not tolerate Robitussin, changed to Tessalon Perles. Continue chest vest, 3.5 saline nebs, flutter valve. Follow-up cultures growing mixed chasidy in sputum on day 2. Blood without growth. Follow-up CBC requested. Elevated D-dimer, noted no PE CT angiogram of the chest numerous mildly prominen t mediastinal and hilar lymph nodes felt to be reactive. Irregular areas of lung consolidation, interstitial thickening, traction bronchiectasis and mild groundglass opacities culture present combination of chronic lung changes with Lexiscan pneumonia possible atypical pneumonia. We will do blood requested. Hyponatremia, sodium 133, recheck chemistry. Hypokalemia potassium noted 3.1, give replacement. Follow-up potassium level. Lactic acidosis, should be resolved, anion gap decreased to 15. Bicarb up to 28. Sepsis, with evidence of infection, elevated white blood cell count, fevers, h ypoxia, tachypnea, continue treatment as above. Cultures noted as above. Persistence of leukocytosis 11.7. Continue treatment as above Attestations Medical Necessity Statement*: Continue admission for assessment continue admission for assessment management of respiratory failure, multifocal pneumonia superimposed on bronchiectasis with history of recurrent aspiration. Diagnoses Acute respiratory failure with hypoxia J96.01 Community acquired pneumonia J18.9 Hypoxia R09.02 Lactic acidosis E87.20 Sepsis A41.9 Dysphagia R13.10
[2022-05-29 20:56] LABS: Glucose Point of Care 219 mg/dL (70-110)
[2022-05-29] MEDS: potassium chloride ER 20 mEq Tablet 40 MEQ PO (22:14)
[2022-05-30] VITALS (14 sets, daily range): BP systolic 120–152; BP diastolic 75–90; PULSE 86–109; RESP 16–19; TEMP 36.6–36.8; O2SAT 94–99
[2022-05-30] MEDS: azithromycin 500 MG in sodium chloride 0.9% 250 ML 250 MG IV ×2 (01:50→23:52)
[2022-05-30] MEDS: vancomycin 1,500 MG/300 ML PIGGYBACK 200 MG IV ×2 (02:58→14:06)
[2022-05-30] MEDS: pantoprazole 40 mg SDV IVP (02:58)
[2022-05-30] MEDS: enoxaparin 40 mg/0.4 mL Syringe SUBCUT (02:58)
[2022-05-30 06:08] LABS: Basophils # 0.1 10^3/uL (0.0-0.1); Basophils % 0.8 %; Eosinophils # 0.2 10^3/uL (0.0-0.8); Eosinophils % 2.2 %; Hematocrit 35.4 % (42.0-52.0); Hemoglobin 11.2 g/dL (11.7-16.6); Lymphocytes # 1.8 10^3/uL (0.8-4.8); Lymphocytes % 18.4 %; Mean Corpuscular HGB Conc 31.6 g/dL (30.0-36.0); Mean Corpuscular Hemoglobin 27.9 pg (28.0-34.0); Mean Corpuscular Volume 88.3 fl (80-94); Mean Platelet Volume 9.9 fL (7.4-10.4); Monocytes # 0.9 10^3/uL (0.2-0.9); Monocytes % 8.7 %; Neutrophils # 6.23 10^3/uL (1.8-7.7); Nucleated Red Blood Cells % 0 %; Platelet Count 465 10^3/cmm (130-400); Red Blood Count 4.01 10^6/uL (4.1-5.3); Red Cell Distribution Width 13.5 % (12.1-15.1); White Blood Count 9.8 10^3/uL (4.0-10.0)
[2022-05-30 06:17] LABS: Anion Gap 13.5 (5-19); Blood Urea Nitrogen 7 mg/dL (8-23); Calcium 8.4 mg/dL (8.5-10.5); Carbon Dioxide 30 mmol/L (22-29); Chloride 99 mmol/L (98-107); Glomerular Filtration Rate 137.4 mL/min (90-130); Glucose 182 mg/dL (65-115); Osmolality Calculated 291 mOsm/kg (285-295); Potassium 3.5 mmol/L (3.5-5.1); Sodium 139 mmol/L (136-145)
[2022-05-30] MEDS: piperacillin-tazobactam 3.375 GM in sodium chloride 0.9% (plus) 50 ML IV ×3 (06:36→23:46)
[2022-05-30 06:48] LABS: Glucose Point of Care 162 mg/dL (70-110)
[2022-05-30 06:52] LABS: Neutrophils % 69.9 %; Slide Review Slide Review Perform
[2022-05-30] MEDS: sodium chloride 3.5% neb 4 mL Neb INHALATION ×2 (08:15→19:37)
[2022-05-30] MEDS: budesonide 0.5 mg/2 mL Neb INHALATION (08:16)
[2022-05-30] MEDS: ipratropium-albuterol 3 mL Neb INHALATION ×4 (08:16→19:37)
[2022-05-30] MEDS: insulin lispro 100 unit/1 mL SUBCUT ×3 (08:52→17:08)
[2022-05-30] MEDS: aspirin 81 mg EC Tablet PO (08:52)
[2022-05-30] MEDS: benzonatate 100 mg Capsule PO ×2 (08:52→15:34)
[2022-05-30 12:11] LABS: Glucose Point of Care 289 mg/dL (70-110)
[2022-05-30 15:19] LABS: Vancomycin Trough 18.5 ug/mL (10-15)
--- NOTE | 2022-05-30 15:51 | PC.NURSE ---
This nurse flexing out. Report given to AVTAR Alexandre. All questions answered.
[2022-05-30 16:25] LABS: Glucose Point of Care 237 mg/dL (70-110)
[2022-05-30 20:51] LABS: Glucose Point of Care 274 mg/dL (70-110)
[2022-05-30] MEDS: zolpidem 5 mg Tablet PO (20:51)
--- NOTE | 2022-05-30 23:01 | P.PN_ITS ---
Subjective Subjective: He is still coughing up phlegm. He is working well with chest vest. Reports he did not get an Ambien. Discussed with him needs to request for it as it is ordered as needed. Vitals/I&O/Wt Last Vital Signs Temp 97.8 F 05/30/22 20:00 Pulse 109 H 05/30/22 20:00 Resp 19 H 05/30/22 20:00 BP 152/83 05/30/22 20:00 Pulse Ox 94 05/30/22 20:00 O2 Del Method Nasal Cannula 05/30/22 19:37 O2 Flow Rate 4 05/30/22 20:45 05/30/22 05/30/22 05/31/22 14:59 22:59 06:59 Intake Total 650 / 650 600 / 1250 Output Total 400 / 400 Balance 650 / 650 200 / 850 Physical Exam Const: COMMON NORMALS: patient oriented x3 and alert GENERAL APPEARANCE: cooperative ORIENTATION/CONSCIOUSNESS: Yes awake HENMT: COMMON NORMALS: oropharynx normal Neck/C-Spine: COMMON NORMALS: no JVD Resp: AUSCULTATION: rhonchi and wheezes Cardio: COMMON NORMALS: no JVD, regular rhythm, S1 normal heart sound present, S2 normal heart sound present and No murmurs present (Cardio) RHYTHM: regular rhythm HEART SOUNDS: S1 normal heart sound present and S2 normal heart sound present GI: COMMON NORMALS: Normal to inspection, nondistended, normoactive bowel sounds present, Soft to palpation and non-tender PALPATION: Yes Soft to palpation Extremity: COMMON NORMALS: no joint enlargement and no pedal edema Neuro: COMMON NORMALS: patient oriented x3 and moves all extremities SENSORIUM/ORIENTATION: Yes alert Skin: COMMON NORMALS: no rashes or lesions noted GENERAL SKIN EXAM: no rashes or lesions noted Data 05/30/22 05:35 05/30/22 05:35 A&P Assessment and plan (1) Acute respiratory failure with hypoxia: (2) Community acquired pneumonia: (3) Hypoxia: (4) Lactic acidosis: (5) Sepsis: (6) Dysphagia: Plan Acute hypoxic respiratory failure -Secondary to pneumonia superimposed on bronchiectasis, with reported recurrent aspiration. Showing some improvement. Continues on 4 L nasal cannula. Subjectively feeling slightly Good results with chest vest, 3.5 saline nebulization, flutter valve. Antibiotics. MRSA PCR noted negative. Sputum culture with noted moderate mixed upper r espiratory chasidy on day 2, final. Blood cultures so far negative. Plan With recurrent aspiration in the past, patchy multifocal pneumonia. Modified barium swallow requested. Stop vancomycin. Continue Zosyn, azithromycin Continue chest vest, 3.5 saline nebs, flutter valve. Tessalon Perles. Follow-up cultures growing mixed chasidy in sputum on day 2. Blood without growth. Follow-up CBC requested. Elevated D-dimer, noted no PE CT angiogram of the chest numerous mildly prominent mediastinal and hilar lymph nodes felt to be reactive. Irregular areas of lung consolidation, interstitial thickening, traction bronchiectasis and mild groundglass opacities culture present combination of chronic lung changes with Lexiscan pneumonia possible atypical pneumonia. We will do blood requested. Hyponatremia, sodium 133, recheck chemistry. Hypokalemia potassium noted 3.1, give replacement. Follow-up potassium level. Lactic acidosis, should be resolved, anion gap decreased to 15. Bicarb up to 28 . Sepsis, with evidence of infection, elevated white blood cell count, fevers, hypoxia, tachypnea, continue treatment as above. Cultures noted as above. Persistence of leukocytosis 11.7. Continue treatment as above Insomnia: Added Ambien. Attestations Medical Necessity Statement*: Continue admission for assessment continue admission for assessment management of respiratory failure, multifocal pneumonia superimposed on bronchiectasis with history of recurrent aspiration. Diagnoses Acute respiratory failure with hypoxia J96.01 Community acquired pneumonia J18.9 Hypoxia R09.02 Lactic acidosis E87.20 Sepsis A41.9 Dysphagia R13.10
[2022-05-31] VITALS (13 sets, daily range): BP systolic 115–151; BP diastolic 54–88; PULSE 83–102; RESP 17–22; TEMP 36.2–36.6; O2SAT 94–99
[2022-05-31] MEDS: enoxaparin 40 mg/0.4 mL Syringe SUBCUT (03:43)
[2022-05-31] MEDS: benzonatate 100 mg Capsule PO ×3 (03:44→21:41)
[2022-05-31] MEDS: pantoprazole 40 mg SDV IVP (04:45)
[2022-05-31 05:39] LABS: Hematocrit 37.4 % (42.0-52.0); Hemoglobin 11.6 g/dL (11.7-16.6); Mean Corpuscular Hemoglobin 28.1 pg (28.0-34.0); Mean Corpuscular Volume 90.6 fl (80-94); Mean Platelet Volume 11.1 fL (7.4-10.4); Platelet Count 417 10^3/cmm (130-400); Red Blood Count 4.13 10^6/uL (4.1-5.3); White Blood Count 9.8 10^3/uL (4.0-10.0)
[2022-05-31 06:00] LABS: Anion Gap 11.4 (5-19); Blood Urea Nitrogen 8 mg/dL (8-23); Calcium 8.4 mg/dL (8.5-10.5); Carbon Dioxide 31 mmol/L (22-29); Chloride 97 mmol/L (98-107); Glomerular Filtration Rate 137.4 mL/min (90-130); Glucose 205 mg/dL (65-115); Osmolality Calculated 286 mOsm/kg (285-295); Potassium 3.4 mmol/L (3.5-5.1); Sodium 136 mmol/L (136-145)
[2022-05-31] MEDS: piperacillin-tazobactam 3.375 GM in sodium chloride 0.9% (plus) 50 ML IV ×3 (06:10→23:15)
[2022-05-31 06:19] LABS: Slide Review Slide Review Perform
[2022-05-31 06:22] LABS: Total Cells Counted 100 (0-100)
[2022-05-31 06:23] LABS: Absolute Eosinophils 0.4 10^3/cmm (0.0-0.7); Absolute Segmented Neutrophil 6.3 10/cmm (1.6-7.1); Band Neutrophils Absolute 0.1 10^3/cmm (0.0-1.2); Eosinophils 5 %; Lymphocytes 15 %; Lymphocytes Absolute 1.6 10^3/cmm (1.2-3.4); Monocytes Absolute 0.7 10^3/cmm (0.1-0.6); Segmented Neutrophils 64 %
[2022-05-31 06:24] LABS: Absolute Neutrophil 6.4 10^3/cmm (1.4-6.5); Platelet Estimate Normal (Normal)
[2022-05-31 06:44] LABS: Glucose Point of Care 188 mg/dL (70-110)
[2022-05-31] MEDS: aspirin 81 mg EC Tablet PO (07:44)
[2022-05-31] MEDS: insulin lispro 100 unit/1 mL SUBCUT ×3 (07:44→17:46)
[2022-05-31] MEDS: ipratropium-albuterol 3 mL Neb INHALATION ×4 (07:58→19:03)
[2022-05-31] MEDS: budesonide 0.5 mg/2 mL Neb INHALATION ×2 (07:58→19:03)
[2022-05-31 11:30] LABS: Glucose Point of Care 285 mg/dL (70-110)
--- NOTE | 2022-05-31 12:10 | PC.SOCIAL ---
IMM Update pg 2 of IMM updated and reviewed w/ patient. Copy provided and Copy dated, initialed and placed in chart.
--- NOTE | 2022-05-31 15:02 | PM.PN ---
Subjective Subjective: This morning patient is doing well however gets short of breath on minimal exertion currently on 2 L at home uses 4 L of oxygen Patient has appointment with curing room supervisor here in August Modified barium swallow unremarkable Vitals/I&O/Wt Last Vital Signs Temp 97.8 F 05/31/22 12:00 Pulse 93 05/31/22 12:00 Resp 17 05/31/22 12:00 BP 142/88 05/31/22 12:00 Pulse Ox 96 05/31/22 12:00 O2 Del Method Nasal Cannula 05/31/22 12:00 O2 Flow Rate 3 05/31/22 11:43 05/31/22 05/31/22 05/31/22 06:59 14:59 22:59 Intake Total 300 / 1790 410 / 410 Balance 300 / 1390 410 / 410 Physical Exam Narrative: Awake and alert Positive crackles and crepitations Currently on 3 L Hemodynamic stable Clinically euvolemic abdomen soft nondistended Neuro: PERRLA GCS 15 Nonfocal neuro exam Appropriate mood and affect Data 05/31/22 05:03 05/31/22 05:03 A&P Assessment and plan (1) Dysphagia: (2) Sepsis: (3) Lactic acidosis: (4) Community acquired pneumonia: (5) Acute respiratory failure with hypoxia: (6) Hypoxia: Plan Sepsis: Ruled out Lactic acid secondary to increased work of breathing from hypoxia Chronic hypoxia without acute exacerbation currently patient is on 3 L, at home uses 4 L of oxygen Bronchiectasis with recurrent infection, risk factors explained to the patient Has pulmonology appointment in August this year I will give him trilogy albuterol on discharge We will give him a trial of Lasix to see if that would ease up his work of breathing Would use BiPAP in case he gets short of breath overnight Modified barium swallow unremarkable Patient had a stroke in remote past which has changes swallowing, he does have nasal twang to his voice Cardiac diet Full code DVT prophylaxis on board Discontinue IV azithromycin, continue IV Zosyn Plan to discharge tomorrow Do home O2 eval before discharge Hypokalemia: Repleted Attestations Medical Necessity Statement*: Plan to discharge tomorrow Diagnoses Dysphagia R13.10 Sepsis A41.9 Lactic acidosis E87.20 Community acquired pneumonia J18.9 Acute respiratory failure with hypoxia J96.01 Hypoxia R09.02
[2022-05-31] MEDS: predniSONE 20 mg Tablet 40 MG PO (15:37)
[2022-05-31] MEDS: potassium chloride ER 20 mEq Tablet 40 MEQ PO (15:37)
[2022-05-31] MEDS: lidocaine 1% 5 ML in potassium chloride premix 100 ML 25 ML IV (15:38)
[2022-05-31] MEDS: FUROsemide 10 mg/mL SDV 2mL 20 MG IVP (16:39)
[2022-05-31 17:03] LABS: Glucose Point of Care 266 mg/dL (70-110)
[2022-05-31] MEDS: sodium chloride 3.5% neb 4 mL Neb INHALATION (19:03)
--- NOTE | 2022-05-31 20:44 | FL_ITS ---
WS: [id number] Exam: FL barium swallow modifd [id number] Date/Time of Exam: 05/31/2022 10:30 AM Reason For Exam: Oropharyngeal dysphagia Fluoroscopy time: 2min [id number] minutes # of spot films: 1 Modified barium swallow was performed in conjunction with the speech therapy service. The patient tolerated thin liquid, pudding consistency, nectar consistency, and solid barium mixture foodstuffs without difficulty. The patient ingested a barium tablet without difficulty. There was no evidence of the aspiration or penetration into the laryngeal inlet. FL/FL barium swallow modifd [id number] IMPRESSION: 1. No laryngeal penetration or aspiration was observed. A separate report of the recommendations and findings will follow from the [facility] therapy service.
[2022-05-31 21:25] LABS: Glucose Point of Care 297 mg/dL (70-110)
[2022-05-31] MEDS: zolpidem 5 mg Tablet PO (21:41)
[2022-06-01] VITALS (7 sets, daily range): BP systolic 134–140; BP diastolic 83–85; PULSE 67–92; RESP 16–18; TEMP 36.1–36.8; O2SAT 88–99
[2022-06-01] MEDS: enoxaparin 40 mg/0.4 mL Syringe SUBCUT (03:22)
[2022-06-01] MEDS: pantoprazole 40 mg SDV IVP (03:22)
[2022-06-01 06:40] LABS: Glucose Point of Care 222 mg/dL (70-110)
[2022-06-01] MEDS: piperacillin-tazobactam 3.375 GM in sodium chloride 0.9% (plus) 50 ML IV (07:17)
[2022-06-01] MEDS: budesonide 0.5 mg/2 mL Neb INHALATION (07:45)
[2022-06-01] MEDS: sodium chloride 3.5% neb 4 mL Neb INHALATION (07:45)
[2022-06-01] MEDS: ipratropium-albuterol 3 mL Neb INHALATION (07:45)
[2022-06-01] MEDS: predniSONE 20 mg Tablet 40 MG PO (08:26)
[2022-06-01] MEDS: aspirin 81 mg EC Tablet PO (08:26)
[2022-06-01] MEDS: insulin lispro 100 unit/1 mL SUBCUT ×2 (08:26→12:11)
[2022-06-01] MEDS: benzonatate 100 mg Capsule PO (08:26)
--- NOTE | 2022-06-01 09:53 | PC.CHAP ---
Pastoral Care Encounter/Spiritual Assessment Type of Contact [] Declined bridge painter helper visit [] Patient/Family/Request visit [] Outpatient visit [] Follow-up visit [] Physician referral [] Code/Alert [x] Routine visit [] Staff referral [] Actively dying [] Patient sleeping [x] Family support [] [] Out of room [] Palliative care [] [] Receiving care in room [] Pre-surgical visit [] Trauma [] Long length of stay [] ICU visit [] Other: Relational/Emotional Strength [x] Patient feels connected with others/family/visitors/staff [] Distress [] Loneliness/isolation [] Abandonment Spirituality of Patient [x] Person of Kavitha [] Attends Jain of their Kavitha [x] Believes in Prayer [] Reads Bible or Druze materials [] There are Spiritual issues to be addressed Marketing Analytics Lead Interventions []x Prayer x[] Active listening [] Non-anxious presence [] Spiritual/emotional support [] Crisis/trauma care [] Spiritual counseling [] Bereavement support [] Provided bereavement packet [] Provided Bible/devotional materials [] Provided toy/stuffed animal, coloring book to patient or family member [] Provided Communion [] Anointing/[facility] [] Salvation [x] Completed spiritual assessment [] Other: Impact on Illness or Injury [] Angry [] Fearful [] Anxious [] Often cries [] Exhaustion [] Unable to work [] Unable to attend nondenominational [] Unable to walk/stand [] Unable to read [] Unable to drive [] Unable to eat/drink [] Unable to sleep [] Unable to be with family [] Patient intubated [] Other: Summary Time spent with patient 10 nmin
[2022-06-01 11:15] LABS: Glucose Point of Care 267 mg/dL (70-110)
--- NOTE | 2022-06-01 11:25 | PM.DCS ---
Discharge Providers Date of Admission: 05/28/22 02:50 Date of Discharge: June 01, 2022 Attending Provider at Admission: Martin Shanks MD Attending Provider at Discharge: Bella hWyte MD Primary Care Provider: Alexandre Antunez MD Diagnoses at Discharge Discharge Diagnosis (1) Dysphagia: Status: Acute (2) Sepsis: Status: Acute (3) Lactic acidosis: Status: Acute (4) Community acquired pneumonia: Status: Acute (5) Acute respiratory failure with hypoxia: Status: Acute (6) Hypoxia: Status: Acute Reason for Visit Reason for Visit: RESP. DISTRESS Hospital Course Hospital Course 61M with multifocal possibly atypical pneumonia, but also bronchiectasis, with hypoxic respiratory failure, requiring 4 L of oxygen, was admitted after presenting with respiratory distress. On Zosyn, azithromycin, initially vancomycin as well, D-dimer abnormal, no PE on CTA. Irregular lung consolidation, interstitial thickening, traction bronchiectasis, mild groundglass opacities likely combination of chronic lung changes with pneumonia. Possible atypical pneumonia. Hilar lymph nodes felt to be reactive. On further discussion with him and his son, patient seems to not not infrequently have aspiration with food/or drink. Ordered MBS which was unremarkable to show any signs of aspiration. Patient had a stroke in the remote past which has affected his pulmonary voice and son has noted that he gets choking episodes sometimes but this is not consistent with every meal. He otherwise has been showing good response to chest vest, hypertonic saline nebs. Continues to cough up phlegm. He has an appointment with Dr. Casas in August. I have asked him to see if he can get an early appointment before August or see someone in [place]. At the time of discharge I will give him Trelegy inhalers along prednisone, moxifloxacin, albuterol, Mucinex and dextromethorphan I have increased the dose of Lantus, Hglobin A1c 9.8 Patient has qualified for 4 L of oxygen at the time of discharge Physical Exam Narrative: Awake and alert Po sitive crackles an d crepitations Cur rently on 3 L Hemo dynamic stable Cli nically euvolemic abdomen soft nondi stended Neuro: PER RLA GCS 15 Nonfoca l neuro exam Appro priate mood and af fect Discharge Data Studies Completed and Pending Completed Studies During Hospitalization Category Date Time Status CT angio chest PE protcl [id number] Stat Cat Scan 05/28/22 02:36 Completed FL barium swallow modifd [id number] Routine Exams 05/31/22 20:44 Completed XR chest 1V portable [id number] Stat Exams 05/28/22 00:08 [place] [id number] Routine Ultrasound 05/28/22 08:52 Completed Pending at discharge Category Date Time Status Blood Culture Stat Lab 05/28/22 01:00 Results Radiology Impressions Chest X-Ray 05/28/22 00:08 IMPRESSION: 1. No significant change since prior. 2. Redemonstration of patchy opacity in the left lower lobe concerning for pneumonia. 3. Additional pertinent findings in the body of the report. Chest CTA 05/28/22 02:36 IMPRESSION: 1. Numerous mildly prominent mediastinal and hilar lymph nodes felt to be reactive. 2. No pulmonary artery embolism identified. 3. Irregular areas of lung consolidation, interstitial thickening, traction bronchiectasis and mild ground-glass opacities felt to represent combination of chronic lung changes with atelectasis and pneumonia, possible atypical pneumonia. Modified Barium Swallow 05/31/22 20:44 IMPRESSION: 1. No laryngeal penetration or aspiration was observed. A separate report of the recommendations and findings will follow from the speech therapy service. Laboratory Results WBC 9.8 10^3/uL (4.0-10.0) 05/31/22 05:03 Corrected WBC Cancelled 05/28/22 00:12 RBC 4.13 10^6/uL (4.1-5.3) 05/31/22 05:03 Hgb 11.6 g/dL (11.7-16.6) L 05/31/22 05:03 Hct 37.4 % (42.0-52.0) L 05/31/22 05:03 MCV 90.6 fl (80-94) 05/31/22 05:03 MCH 28.1 pg (28.0-34.0) 05/31/22 05:03 MCHC 31.0 g/dL (30.0-36.0) 05/31/22 05:03 RDW 14.0 % (12.1-15.1) 05/31/22 05:03 Plt Count 417 10^3/cmm (130-400) H 05/31/22 05:03 MPV 11.1 fL (7.4-10.4) H 05/31/22 05:03 Gran % Cancelled 05/28/22 00:12 Neut % (Auto) 69.9 % 05/30/22 05:35 Lymph % (Auto) Not Reportable 05/31/22 05:03 [place] % (Auto) Not Reportable 05/31/22 05:03 Eos % (Auto) 2.2 % 05/30/22 05:35 Baso % (Auto) 0.8 % 05/30/22 05:35 Neut # (Auto) 6.23 10^3/uL (1.8-7.7) 05/30/22 05:35 Lymph # (Auto) Not Reportable 05/31/22 05:03 [place] # (Auto) Not Reportable 05/31/22 05:03 Eos # (Auto) 0.2 10^3/uL (0.0-0.8) 05/30/22 05:35 Baso # (Auto) 0.1 10^3/uL (0.0-0.1) 05/30/22 05:35 Absolute Gran (auto) Cancelled 05/28/22 00:12 Nucleated RBC % (auto) 0 % 05/30/22 05:35 Total Counted 100 (0-100) 05/31/22 05:03 Atypical Lymphs % 1.0 % (0-5) 05/31/22 05:03 Absolute Neutrophils 6.4 10^3/cmm (1.4-6.5) 05/31/22 05:03 Segmented Neutrophils 64 % 05/31/22 05:03 Abs Segm Neuts (Man) 6.3 10/cmm (1.6-7.1) 05/31/22 05:03 Band Neutrophils 1.0 % 05/31/22 05:03 Abs Band Neuts (Man) 0.1 10^3/cmm (0.0-1.2) 05/31/22 05:03 Absolute Lymphocytes 1.6 10^3/cmm (1.2-3.4) 05/31/22 05:03 Lymphocytes (Manual) 15 % 05/31/22 05:03 Monocytes (Manual) 7.0 % 05/31/22 05:03 Absolute Monocytes 0.7 10^3/cmm (0.1-0.6) H 05/31/22 05:03 Eosinophils (Manual) 5 % 05/31/22 05:03 Absolute Eosinophils 0.4 10^3/cmm (0.0-0.7) 05/31/22 05:03 Basophils (Manual) 0.0 % 05/31/22 05:03 Absolute Basophils 0.0 10^3/cmm (0.0-0.2) 05/31/22 05:03 Metamyelocytes 2.0 % 05/31/22 05:03 Myelocytes 5.0 % 05/31/22 05:03 Nucleated RBCs # 0.0 /100WBC 05/30/22 05:35 Platelet Estimate Normal (Normal) 05/31/22 05:03 D-Dimer 5.77 ug/mIFEU (0-0.59) H 05/28/22 00:12 Sodium 136 mmol/L (136-145) 05/31/22 05:03 Potassium 3.4 mmol/L (3.5-5.1) L 05/31/22 05:03 Chloride 97 mmol/L (98-107) L 05/31/22 05:03 Carbon Dioxide 31 mmol/L (22-29) H 05/31/22 05:03 Anion Gap 11.4 (5-19) 05/31/22 05:03 BUN 8 mg/dL (8-23) 05/31/22 05:03 Creatinine 0.6 mg/dL (0.7-1.2) L 05/31/22 05:03 GFR Calculation 137.4 mL/min (90-130) H 05/31/22 05:03 Glucose 205 mg/dL (65-115) H 05/31/22 05:03 POC Glucose 267 mg/dL (70-110) H 06/01/22 11:12 Estimat Average Glucose 235 05/28/22 05:28 Hemoglobin A1c 9.8 % (4.0-6.0) H 05/28/22 05:28 Calculated Osmolality 286 mOsm/kg (285-295) 05/31/22 05:03 Lactic Acid 4.9 mmol/L (0.5-2.2) H* 05/28/22 01:00 Lactic Acid (Sepsis) 2.9 mmol/L (0.5-2.2) H 05/28/22 05:28 Lactate 3.5 mmol/L (0.5-2.2) H 05/28/22 08:38 Calcium 8.4 mg/dL (8.5-10.5) L 05/31/22 05:03 Total Bilirubin 0.4 mg/dL (0.15-1.2) 05/28/22 00:12 AST 23 U/L (0-40) 05/28/22 00:12 ALT 19 U/L (0-41) 05/28/22 00:12 Alkaline Phosphatase 58 U/L (40-130) 05/28/22 00:12 Troponin T Baseline 12 ng/L (0-15) 05/28/22 01:05 Troponin T 120 Minute 15.46 ng/L (0-15) H 05/28/22 05:28 Delta Troponin T 3.46 ABS# (0-10) 05/28/22 05:28 Troponin T Hi Sens 6Hr 16.14 ng/L (0-15) H 05/28/22 08:38 Troponin T Hi Sens 6Hr Delta 4.14 ng/L (0-12) 05/28/22 08:38 C-Reactive Protein 295.1 mg/L (0.0-4.9) H 05/28/22 02:12 NT-Pro-B Natriuret Pep 123 pg/mL (0-125) 05/28/22 05:28 Total Protein 7.2 g/dL (6.6-8.7) 05/28/22 00:12 Albumin 3.3 g/dL (3.5-5.2) L 05/28/22 00:12 Globulin 3.9 g/dL (1.3-4.6) 05/28/22 00:12 Triglycerides 61 mg/dL (0-150) 05/28/22 05:28 Cholesterol 83 mg/dL (0-200) 05/28/22 05:28 LDL Cholesterol, Calc 20 mg/dL (50-129) L 05/28/22 05:28 HDL Cholesterol 51 mg/dL (60-100) L 05/28/22 05:28 LDL/HDL Ratio 0.39 RATIO (0.00-3.22) 05/28/22 05:28 Cholesterol/HDL Ratio 1.63 mg/dL (1.0-5.00) 05/28/22 05:28 Procalcitonin 0.46 ng/mL (0-0.5) 05/28/22 02:12 TSH 0.59 uIU/mL (0.27-4.20) 05/28/22 05:28 Urine Color Colorless (Yellow) 05/28/22 01:45 Urine Appearance Clear (CLEAR) 05/28/22 01:45 Urine pH 5 (5-7) 05/28/22 01:45 Ur Specific [place] 1.015 (1.005-1.030) 05/28/22 01:45 Urine Protein 1+ (Negative) H 05/28/22 01:45 Urine Glucose (UA) 4+ (Normal) H 05/28/22 01:45 Urine Ketones 2+ (Negative) H 05/28/22 01:45 Urine Blood 3+ (Negative) H 05/28/22 01:45 Urine Nitrate Negative (Negative) 05/28/22 01:45 Urine Bilirubin Neg (Negative) 05/28/22 01:45 Urine Urobilinogen Neg mg/dL (Negative) 05/28/22 01:45 Ur Leukocyte Esterase Negative (Negative) 05/28/22 01:45 Urine RBC 5-10 /hpf (0-2) H 05/28/22 01:45 Urine WBC None /hpf (0-5) 05/28/22 01:45 Ur Squamous Epith Cells None /hpf (0-5) 05/28/22 01:45 Amorphous Sediment Not Reportable 05/28/22 01:45 Urine Bacteria None /hpf (NONE) 05/28/22 01:45 Nasal Influ A H1 2008 PCR Not detected (NOT DETECT) 05/28/22 02:50 Vancomycin Trough 18.5 ug/mL (10-15) H 05/30/22 14:15 Adenovirus (PCR) Not detected (NOT DETECT) 05/28/22 02:50 C. pneumoniae DNA (PCR) Not detected (NOT DETECT) 05/28/22 02:50 Coronavirus 229E (PCR) Not detected (NOT DETECT) 05/28/22 02:50 Human Metapneumovir PCR Not detected (NOT DETECT) 05/28/22 02:50 Influenza A (H1) PCR Not detected (NOT DETECT) 05/28/22 02:50 Influenza A (H3) PCR Not detected (NOT DETECT) 05/28/22 02:50 Influenza Type A (PCR) Not detected (NOT DETECT) 05/28/22 02:50 Influenza Type B (PCR) Not detected (NOT DETECT) 05/28/22 02:50 M. pneumoniae (PCR) Not detected (NOT DETECT) 05/28/22 02:50 Parainfluenza 1 (PCR) Not detected (NOT DETECT) 05/28/22 02:50 Parainfluenza 2 (PCR) Not detected (NOT DETECT) 05/28/22 02:50 Parainfluenza 3 (PCR) Not detected (NOT DETECT) 05/28/22 02:50 Parainfluenza 4 (PCR) Not detected (NOT DETECT) 05/28/22 02:50 RSV Type A (PCR) Not detected (NOT DETECT) 05/28/22 02:50 RSV Type B (PCR) Not detected (NOT DETECT) 05/28/22 02:50 Entero/Rhino (PCR) Not detected (NOT DETECT) 05/28/22 02:50 SARS-CoV-2 (PCR) Not detected (NOT DETECT) 05/28/22 02:50 SARS-CoV-2 Ag (Rapid) negative (Negative) 05/28/22 01:45 Vitals Last Vital Signs Temp 97.5 F L 06/01/22 07:55 Pulse 76 06/01/22 07:55 Resp 16 06/01/22 07:55 BP 134/83 06/01/22 07:55 Pulse Ox 88 L 06/01/22 08:18 O2 Del Method Nasal Cannula 06/01/22 07:55 O2 Flow Rate 3 06/01/22 08:18 Discharge Plan Discharge Patient Disposition: Home Condition: Stable Prescriptions: New methylprednisolone [Medrol (Luciano)] 4 mg tablets,dose pack See Rx Instructions .ROUTE .COMPLEX Qty: 21 0RF Rx Instructions: orally per package directions Mucinex Cough-Chest Congest HB 10-200 mg capsule 1 tab-cap PO Q8H PRN (Reason: cough) Qty: 60 0RF albuterol sulfate 0.63 mg/3 mL solution for nebulization 0.63 mg inhalation Q8H PRN (Reason: shortness of breath or wheezing) Qty: 90 3RF Trelegy Ellipta 100-62.5-25 mcg blister with device 1 inh inhalation DAILY Qty: 60 3RF moxifloxacin 400 mg tablet 400 mg PO DAILY 7 Days Qty: 7 0RF Continued fluoxetine 20 mg capsule 20 mg PO DAILY carvedilol 6.25 mg tablet 6.25 mg PO BID Qty: 60 0RF metformin 500 mg tablet 500 mg PO BID Qty: 60 2RF Changed Lantus U-100 Insulin 100 unit/mL solution 35 unit SUBCUT DAILY Qty: 15 3RF Discharge Orders: Discharge Order (Routine); Ordered 06/01/22 Ordered By: Bella Whyte Other Ambulatory Orders: DME: Nebulizer with Neb Kit (Order) Location: None Selected Ordered By: Bella Whyte DME: Oxygen (Order) Location: None Selected Ordered By: Bella Whyte Speech Language Pathology Eval and Treat Outpatient (Order) Timeframe: 3 Days Facility: [facility] - Location: Speech Therapy [place] Ordered By: Bella Whyte Referrals: Katie Antunez FNP [Referring] - 06/07/22 2:00 pm (AT [facility] [phone]) Patient Instructions: Opioid Safety Discharge Attestations Time Spent in Discharge Care*: greater than 30 min Quality Metrics Clinical Quality Measures [ No reported AMI, CVA or VTE this stay] Coding Level of Care Code Acute Code for Chg Fwd Diagnoses Dysphagia R13.10 Sepsis A41.9 Lactic acidosis E87.20 Community acquired pneumonia J18.9 Acute respiratory failure with hypoxia J96.01 Hypoxia R09.02
[2022-06-01] MEDS: potassium chloride ER 20 mEq Tablet 40 MEQ PO (12:11)
--- NOTE | 2022-06-01 12:40 | PC.NURSE ---
Discharge Note Patient discharged to home via private vehicle accompanied by friend. Discharge instructions reviewed with patient and/or communications representative. Mobile pharmacy medications and/or prescriptions provided. Belongings/home medications returned.
== END 2022-06-01 12:42 | disposition home or self-care (01) | DRG 193 ==
LOC: ER 05-28 03:03 → MEDSURG 05-28 03:06
PROVIDERS: Internal Medicine; Nurse Practitioner Family; Admitting Provider Family Medicine; Emergency Provider Emergency Medicine; Visit Provider Internal Medicine
DX: J18.9 Pneumonia, unspecified organism (principal); J96.21 Acute and chronic respiratory failure with hypoxia; E87.20 Acidosis, unspecified; E87.1 Hypo-osmolality and hyponatremia; J47.9 Bronchiectasis, uncomplicated; Z79.84 Long term (current) use of oral hypoglycemic drugs; Z86.73 Personal history of transient ischemic attack (TIA), and cerebral infarction without residual deficits; E11.9 Type 2 diabetes mellitus without complications; E66.9 Obesity, unspecified; Z68.38 Body mass index [BMI] 38.0-38.9, adult; U09.9 Post COVID-19 condition, unspecified; E87.6 Hypokalemia; R13.10 Dysphagia, unspecified
CPT/HCPCS: 36415; 36416; 71045; 71275; 74230; 80048; 80053; 80061; 80202; 81001; 82962; 83036; 83605; 83880; 84145; 84443; 84484; 85007; 85025; 85378; 86140; 87040; 87070; 87205; 87426; 87486; 87581; 87633; 87641; 92523; 92610; 92611; 93005; 93970; 94640; 94669; 94760; 96365; 96367; 96372; 99285; C9113; J0456; J0696; J1650; J1815; J1940; J2543; J3370; J3480; J7030; J7050; J7512; J7613; J7626; Q9967

== ENCOUNTER 2022-06-17 06:00 | Outpatient (RCR) | payer MEDICARE, SELFPAY | END 2022-07-07 23:59 | disposition home or self-care (01) | LOC: TST 06:00 | PROVIDERS: Visit Provider Internal Medicine | DX: R13.10 Dysphagia, unspecified (principal) | CPT/HCPCS: 92507; 92610 ==

== ENCOUNTER 2022-06-23 06:00 | Outpatient (RCR) | payer MEDICARE, OTHER, SELFPAY | END 2022-07-07 23:59 | disposition home or self-care (01) | LOC: TPT 06:00 | PROVIDERS: Visit Provider Nurse Practitioner Family | DX: R53.1 Weakness (principal) | CPT/HCPCS: 97162 ==

== ENCOUNTER 2023-12-08 15:36 | Emergency (ER) | payer OTHER, SELFPAY ==
[2023-12-08] VITALS (9 sets, daily range): BP systolic 139–170; BP diastolic 86–99; PULSE 102–118; RESP 18–22; TEMP 36.4; O2SAT 93–100; BMI 36.0
--- NOTE | 2023-12-08 15:42 | XRR_ITS ---
PROCEDURE INFORMATION: Exam: XR Chest Exam date and time: 12/08/2023 4:07 PM Age: 63 years old Clinical indication: Dyspnea TECHNIQUE: Imaging protocol: Radiologic exam of the chest. Views: 1 view. COMPARISON: CT angio chest PE protcl [id number] 05/28/2022 3:39 AM FINDINGS: Lungs: Bilateral largely left lower lobe pneumonic infiltrates. Pleural spaces: Trace right pleural effusion. Heart/Mediastinum: Unremarkable. No cardiomegaly. Bones/joints: Unremarkable. XR/XR chest 1V portable [id number] IMPRESSION: 1. Bilateral largely left lower lobe pneumonic infiltrates. 2. Trace right pleural effusion.
--- NOTE | 2023-12-08 15:45 | W.ED.SOB ---
HPI - SOB/Dyspnea General: Chief Complaint: Shortness of Breath/Dyspnea Stated Complaint: SOB Time Seen by Provider: 12/08/23 15:39 History of Present Illness: HPI Narrative: Patient presents to the ER with complaints of low oxygen. [facility] he was trying get extra help at home they noticed his O2 sat was low but they did not tell him how low it was. Patient normally wears 4 L of nasal cannula all the time. Patient had his long COVID. He was diagnosed with COVID 4 years ago and has had lung problems ever since. Patient denies any fever chills or overt signs of sickness. Related Data Home Medications Medication Instructions Recorded Confirmed fluoxetine 20 mg capsule 20 mg PO DAILY 05/28/22 05/28/22 Previous Rx's Medication Instructions Recorded albuterol sulfate 0.63 mg/3 mL 0.63 mg (3 mL) inhalation Q8H PRN 06/01/22 solution for nebulization shortness of breath or wheezing #90 mL carvedilol 6.25 mg tablet 6.25 mg PO BID #60 tabs 06/01/22 dextromethorphan-guaifenesin 10 1 tab-cap PO Q8H PRN cough #60 caps 06/01/22 mg-200 mg capsule (Mucinex Cough-Chest Congestion HBP) fluticasone fur. 100 mcg-umeclid 1 inh inhalation DAILY #60 ea 06/01/22 62.5 mcg-vilant 25 mcg inhalat.powder (Trelegy Ellipta) insulin glargine 100 unit/mL 35 unit (0.35 mL) SUBCUT DAILY #15 06/01/22 subcutaneous solution (Lantus mL U-100 Insulin) metformin 500 mg tablet 500 mg PO BID #60 tabs 06/01/22 methylprednisolone 4 mg tablets in See Rx Instructions PO .COMPLEX 06/01/22 a dose pack (Medrol (Luciano)) #21 ea fluconazole 200 mg tablet 200 mg PO .Weekly 4 weeks #4 tabs 12/08/23 levofloxacin 500 mg tablet 500 mg PO DAILY 7 days #7 tabs 12/08/23 prednisone 50 mg tablet 50 mg PO DAILY 5 days #5 tabs 12/08/23 Allergies Allergy/AdvReac Type Severity Reaction Status Date / Time No Known Allergies Allergy Verified 10/28/21 16:22 Review of Systems General: Reports: 10 or more systems reviewed and unremarkable except in HPI and below PFSH ED PFSH: Medical History Dysphagia Sepsis Lactic acidosis Acute respiratory failure with hypoxia Community acquired pneumonia COVID-19 History of home oxygen therapy Hypoxia Surgical History No pertinent past surgical history Family History Father CAD (coronary artery disease) Social History Smoking and tobacco/nicotine status: never used tobacco/nicotine Alcohol intake: never Substance/Drug Use: never Physical Exam Const: COMMON NORMALS: no acute distress, average body habitus, patient oriented x3, no limitations, healthy appearing, alert and well nourished HENMT: COMMON NORMALS: normocephalic, atraumatic, hearing grossly normal bilaterally, external ears normal, Normal external nose present and moist oral mucous membranes HEAD & SCALP: normocephalic and atraumatic NOSE: Normal external nose present EXTERNAL EAR: Yes external ears normal Neck/C-Spine: COMMON NORMALS: no JVD Chest: COMMONS NORMALS: normal inspection of the chest and normal palpation of entire chest wall Resp: COMMON NORMALS: normal respiratory effort, No retractions, No use of accessory muscles and clear to auscultation bilaterally (Decreased breath sounds bilaterally) AUSCULTATION: clear to auscultation bilaterally (Decreased breath sounds bilaterally) Cardio: COMMON NORMALS: no JVD, regular rate, regular rhythm, S1 normal heart sound present, S2 normal heart sound present, No gallops present (Cardio), No clicks present (Cardio), No murmurs present (Cardio) and No rub (Cardio) RATE: regular rate RHYTHM: regular rhythm HEART SOUNDS: S1 normal heart sound present and S2 normal heart sound present GI: COMMON NORMALS: Normal to inspection, nondistended, normoactive bowel sounds present, Soft to palpation, non-tender, No hepatosplenomegaly present and no masses PALPATION: Yes Soft to palpation and Yes No hepatosplenomegaly present Neuro: COMMON NORMALS: patient oriented x3 SENSORIUM/ORIENTATION: Yes alert Course Vital Signs: Vital signs: Vital Signs Temperature 97.6 F 12/08/23 15:38 Pulse Rate 118 H 12/08/23 19:38 Respiratory Rate 18 12/08/23 19:38 Blood Pressure 142/99 12/08/23 19:38 Pulse Oximetry 99 12/08/23 19:38 Oxygen Delivery Me thod Nasal Cannula 12/08/23 19:38 Oxygen Flow Rate 3 12/08/23 19:38 MDM - SOB/Dyspnea Medical Decision Making Patient had lab work showed a normal white count 8.28, chest x-ray showed bilateral large left lower lobe pneumonic infiltrate trace right pleural effusion, COVID flu RSV negative, patient was given 125 mg Solu-Medrol, 3 mL DuoNeb 1 mg Ativan. Levaquin 500 milligrams p.o. and will be discharged on Levaquin. Patient also said he had a jock itch we will place him on some fluconazole as he says he tried everything [id number]. Medical Records I reviewed the patient's medical records. Lab Data I reviewed the patient's lab results. 12/08/23 15:55 12/08/23 15:55 Labs/Radiology: Radiology Impressions Chest X-Ray 12/08/23 15:42 IMPRESSION: 1. Bilateral largely left lower lobe pneumonic infiltrates. 2. Trace right pleural effusion. Laboratory Results WBC 8.28 10^3/uL (3.29-11.43) 12/08/23 15:55 RBC 4.68 10^6/uL (3.85-5.65) 12/08/23 15:55 Hgb 13.40 g/dL (11.27-16.99) 12/08/23 15:55 Hct 42.2 % (37-53) 12/08/23 15:55 MCV 90.2 fl (82-101) 12/08/23 15:55 MCH 28.6 pg (27-33) 12/08/23 15:55 MCHC 31.8 g/dL (30-55) 12/08/23 15:55 RDW 12.8 % (12.1-15.1) 12/08/23 15:55 Plt Count 338 10^3/cmm (157-399) 12/08/23 15:55 MPV 10.8 fL (7.4-10.4) H 12/08/23 15:55 Neut % (Auto) 73.1 % 12/08/23 15:55 Lymph % (Auto) 18.0 % 12/08/23 15:55 [place] % (Auto) 7.1 % 12/08/23 15:55 Eos % (Auto) 0.7 % 12/08/23 15:55 Baso % (Auto) 0.7 % 12/08/23 15:55 Neut # (Auto) 6.05 10^3/uL (1.8-7.7) 12/08/23 15:55 Lymph # (Auto) 1.5 10^3/uL (0.8-4.8) 12/08/23 15:55 [place] # (Auto) 0.6 10^3/uL (0.2-0.9) 12/08/23 15:55 Eos # (Auto) 0.1 10^3/uL (0.0-0.8) 12/08/23 15:55 Baso # (Auto) 0.1 10^3/uL (0.0-0.1) 12/08/23 15:55 Nucleated RBC % (auto) 0 % 12/08/23 15:55 Nucleated RBCs # 0.0 /100WBC 12/08/23 15:55 Sodium 138 mmol/L (136-145) 12/08/23 15:55 Potassium 3.8 mmol/L (3.5-5.1) 12/08/23 15:55 Chloride 94 mmol/L (98-107) L 12/08/23 15:55 Carbon Dioxide 30 mmol/L (22-29) H 12/08/23 15:55 Anion Gap 17.8 (5-19) 12/08/23 15:55 BUN 11 mg/dL (8-23) 12/08/23 15:55 Creatinine 0.8 mg/dL (0.7-1.2) 12/08/23 15:55 GFR Calculation 98.0 mL/min (90-130) 12/08/23 15:55 Glucose 295 mg/dL (65-115) H 12/08/23 15:55 Calculated Osmolality 296 mOsm/kg (285-295) H 12/08/23 15:55 Calcium 8.9 mg/dL (8.5-10.5) 12/08/23 15:55 Total Bilirubin 0.5 mg/dL (0.15-1.2) 12/08/23 15:55 AST 15 U/L (0-40) 12/08/23 15:55 ALT 21 U/L (0-41) 12/08/23 15:55 Alkaline Phosphatase 59 U/L (40-130) 12/08/23 15:55 Total Protein 7.5 g/dL (6.6-8.7) 12/08/23 15:55 Albumin 4.2 g/dL (3.5-5.2) 12/08/23 15:55 Globulin 3.3 g/dL (1.3-4.6) 12/08/23 15:55 Coronavirus (PCR) Negative (Negative) 12/08/23 15:51 Influenza A (PCR) Negative (Negative) 12/08/23 15:51 Influenza Type B (PCR) Negative (Negative) 12/08/23 15:51 RSV (PCR) Negative (Negative) 12/08/23 15:51 All radiology interpretation(s) finalized by discharge Discharge Plan Discharge Patient Disposition: Home Clinical Impression: Tinea cruris Pneumonia Qualifiers: Pneumonia type: due to unspecified organism Laterality: left Lung location: lower lobe of lung Qualified Code(s): J18.9 - Pneumonia, unspecified organism COPD (chronic obstructive pulmonary disease) Qualifiers: COPD type: unspecified COPD Qualified Code(s): J44.9 - Chronic obstructive pulmonary disease, unspecified Condition: Stable Prescriptions: New levofloxacin 500 mg tablet 500 mg PO DAILY 7 Days Qty: 7 0RF prednisone 50 mg tablet 50 mg PO DAILY 5 Days Qty: 5 0RF fluconazole 200 mg tablet 200 mg PO .Weekly 28 Days Qty: 4 0RF No Action fluoxetine 20 mg capsule 20 mg PO DAILY Trelegy Ellipta 100-62.5-25 mcg blister with device 1 inh inhalation DAILY Qty: 60 3RF albuterol sulfate 0.63 mg/3 mL solution for nebulization 0.63 mg inhalation Q8H PRN (Reason: shortness of breath or wheezing) Qty: 90 3RF Medrol (Luciano) 4 mg tablets,dose pack See Rx Instructions .ROUTE .COMPLEX Qty: 21 0RF Rx Instructions: orally per package directions metformin 500 mg tablet 500 mg PO BID Qty: 60 2RF carvedilol 6.25 mg tablet 6.25 mg PO BID Qty: 60 0RF Lantus U-100 Insulin 100 unit/mL solution 35 unit SUBCUT DAILY Qty: 15 3RF Mucinex Cough-Chest Congest HB 10-200 mg capsule 1 tab-cap PO Q8H PRN (Reason: cough) Qty: 60 0RF Discharge Orders: Discharge ED (Routine); Ordered 12/08/23 Ordered By: Melchor Schreiber Patient Instructions: Pneumonia (ED), Tinea Cruris, Chronic Lung Disease and Infection Prevention (ED) Activity Restrictions/Additional Instructions: Please pick your antibiotics up from the pharmacy take them as directed. Please follow-up with your family practitioner within next 7 to 10 days for further evaluation and treatment as needed. Thank you for choosing [facility] for your healthcare needs today. Please realize that you were seen in the emergency department and that we are providing you with an emergency medical screening exam and this may not be a complete and all exclusive of all testing and/or medical workup we may need to determine your element or severity of your illness. It is very important that you follow-up as instructed with your primary care provider or specialist for the additional evaluation and to discuss your medical treatment plan. You may return to the emergency department should you have concerns or if your condition changes or worsens in any way. Coding Level of Care Code ED Radiologic Technology Teacher for Andra Calles
[2023-12-08] MEDS: methylPREDNISolone sod succ 125 mg/2 mL INJ IVP (15:52)
--- NOTE | 2023-12-08 15:52 | ECG_ITS ---
[facility]08 Pat Name: Erasmo Child Department: Room: Gender: Male Party Host: : [id number] Requested By: Melchor Schreiber Order Number: [id number] Gato MD: Irene Hernandez M.D. Measurements Intervals [place] Rate: 98 P: 18 SC: 236 QRS: 12 QRSD: 105 T: -7 QT: 347 QTc: 445 Interpretive Statements SINUS RHYTHM WITH FIRST DEGREE AV BLOCK MINIMAL VOLTAGE CRITERIA FOR LVH, CONSIDER NORMAL VARIANT NONSPECIFIC ST & T-WAVE ABNORMALITY Compared to ECG 05/28/2022 08:44:50 First degree AV block now present Electronically Signed On 12-08-2023 17:09:38 CDT by Irene Hernandez M.D. [email or web address]
[2023-12-08 16:10] LABS: Basophils # 0.1 10^3/uL (0.0-0.1); Basophils % 0.7 %; Eosinophils # 0.1 10^3/uL (0.0-0.8); Eosinophils % 0.7 %; Hematocrit 42.2 % (37-53); Lymphocytes # 1.5 10^3/uL (0.8-4.8); Mean Corpuscular HGB Conc 31.8 g/dL (30-55); Mean Corpuscular Hemoglobin 28.6 pg (27-33); Mean Corpuscular Volume 90.2 fl (82-101); Mean Platelet Volume 10.8 fL (7.4-10.4); Monocytes # 0.6 10^3/uL (0.2-0.9); Monocytes % 7.1 %; Neutrophils # 6.05 10^3/uL (1.8-7.7); Neutrophils % 73.1 %; Nucleated Red Blood Cells % 0 %; Platelet Count 338 10^3/cmm (157-399); Red Blood Count 4.68 10^6/uL (3.85-5.65); Red Cell Distribution Width 12.8 % (12.1-15.1); White Blood Count 8.28 10^3/uL (3.29-11.43)
[2023-12-08] MEDS: ipratropium-albuterol 3 mL Neb INHALATION (16:13)
[2023-12-08 16:23] LABS: Alanine Aminotransferase 21 U/L (0-41); Albumin Level 4.2 g/dL (3.5-5.2); Alkaline Phosphatase 59 U/L (40-130); Anion Gap 17.8 (5-19); Aspartate Amino Transferase 15 U/L (0-40); Blood Urea Nitrogen 11 mg/dL (8-23); Calcium 8.9 mg/dL (8.5-10.5); Carbon Dioxide 30 mmol/L (22-29); Chloride 94 mmol/L (98-107); Creatinine Clr Calc Pharmacy 110.2162; Globulin 3.3 g/dL (1.3-4.6); Glucose 295 mg/dL (65-115); Osmolality Calculated 296 mOsm/kg (285-295); Potassium 3.8 mmol/L (3.5-5.1); Sodium 138 mmol/L (136-145); Total Bilirubin 0.5 mg/dL (0.15-1.2); Total Protein 7.5 g/dL (6.6-8.7)
[2023-12-08 16:53] LABS: Covid PCR NEGATIVE (Negative); Influenza A NEGATIVE (Negative); Influenza B NEGATIVE (Negative); Respiratory Syncytial Virus Ce NEGATIVE (Negative)
--- NOTE | 2023-12-08 17:06 | PC.NURSE ---
this nurse assumed pt care from Iwona JOYNER at 1700.
[2023-12-08] MEDS: LORazepam 2 mg/mL INJ 1 mL 1 MG IVP (17:30)
[2023-12-08] MEDS: levoFLOXacin 500 mg Tablet PO (19:50)
== END 2023-12-08 20:15 | disposition home or self-care (01) ==
PROVIDERS: Emergency Provider Emergency Medicine
DX: B35.6 Tinea cruris (principal); J18.9 Pneumonia, unspecified organism; J44.9 Chronic obstructive pulmonary disease, unspecified; Z99.81 Dependence on supplemental oxygen; Z79.84 Long term (current) use of oral hypoglycemic drugs; Z11.52 Encounter for screening for COVID-19
CPT/HCPCS: 0241U; 71045; 80053; 85025; 93005; 94640; 96374; 96375; 99285; J2060; J2919

== ENCOUNTER 2024-01-03 10:30 | Outpatient (CLI) | payer OTHER, SELFPAY ==
--- NOTE | 2024-01-03 10:40 | CTR_ITS ---
PROCEDURE INFORMATION: Exam: CT Chest With Contrast; Diagnostic Exam date and time: 01/03/2024 10:47 AM Age: 63 years old Clinical indication: Abnormal findings; Abnormal radiologic exam of lung or chest; Additional info: Abnormal chest xray TECHNIQUE: Imaging protocol: Diagnostic computed tomography of the chest with contrast. Radiation optimization: All CT scans at this facility use at least one of these dose optimization techniques: automated exposure control; mA and/or kV adjustment per patient size (includes targeted exams where dose is matched to clinical indication); or iterative reconstruction. Contrast material: OMNI 350; Contrast volume: 100 ml; Contrast route: INTRAVENOUS (IV); COMPARISON: CT angio chest PE protcl [id number] 05/28/2022 3:39 AM RADIATION DOSE METRICS: Total DLP (mGy-cm): 462.22 FINDINGS: Lungs: Chronic changes include intralobar and interlobular fibrosis, centrilobular emphysema, and mild scattered infiltrates bilaterally. All findings are chronic. Superimposed acute infiltrates which were present on 05/28/2022 have improved. Pleural spaces: Unremarkable. No pneumothorax. No pleural effusion. Heart: Unremarkable. No cardiomegaly. No pericardial effusion. Lymph nodes: Calcified lymph nodes centrally and on the left. Vasculature: Unremarkable. No aortic aneurysm. Bones/joints: Unremarkable. No acute fracture. Soft tissues: Unremarkable. CT/CT chest w con* [id number] IMPRESSION: Chronic findings. COMMENTS: The presence of pulmonary emphysema on CT is an independent risk factor for lung cancer. In the absence of a history or active diagnosis of lung cancer, it is recommended that this patient with emphysema be evaluated for enrollment in a low dose CT lung cancer screening program.
[2024-01-03] MEDS: iohexol 350 mg/mL 500 mL Btl (per mL) IV (10:57)
== END 2024-01-03 10:38 | disposition home or self-care (01) ==
PROVIDERS: PCP Family Medicine; Visit Provider Family Medicine
DX: J43.9 Emphysema, unspecified (principal); J84.10 Pulmonary fibrosis, unspecified; R91.8 Other nonspecific abnormal finding of lung field
CPT/HCPCS: 71260